=== PATIENT | female | born 1985 | race Caucasian/White ===

== ENCOUNTER 2019-05-12 11:29 | Inpatient (IN) | payer MEDICAID, OTHER ==
--- NOTE | 2019-05-12 12:34 | ED ---
General Adult HPI - General Source: patient, family, RN notes reviewed Mode of arrival: ambulatory Limitations: no limitations <Jerald Rivas - Last Filed: 05/12/19 14:29> <Norah Coy - Last Filed: 05/17/19 12:16> - General Chief complaint: Psychiatric Symptoms Stated complaint: EPS eval Time Seen by Provider: 05/12/19 11:42 - History of Present Illness Initial comments: 34-year-old female with a past medical history of depression, anxiety, schizophrenia, bipolar disorder on several different medications outpatient for these conditions presents to the emergency department for "not feeling myself here at" this has been ongoing for about 2 weeks. Patient states she feels like something is "off." That she has been more anxious. States that she is feeling more depressed as well. She has had suicidal thoughts for 2 weeks. States she does not feel safe anywhere and she feels she is going to hurt herself. Apparently in front of her and son a few nights ago patient put a cord around her neck and "yanked it." She has a small abrasion and pressed her right side of her neck from this. She did not hang herself. Patient is denying a plan of suicide at this time but is currently feeling suicidal. is at bedside.Patient has no other complaints at this time including shortness of breath, chest pain, abdominal pain, nausea or vomiting, headache, or visual changes. (Jerald Rivas) - Related Data Home Medications Medication Instructions Recorded Confirmed Benztropine Mesylate [Cogentin] 1 mg PO BID 05/12/19 05/12/19 Prolixin 25mg/1ml Oil 25 mg IM Q14D 05/12/19 05/12/19 Propranolol LA [Inderal LA] 80 mg PO DAILY 05/12/19 05/12/19 hydrOXYzine PAMOATE [Vistaril] 50 mg PO BID 05/12/19 05/12/19 lamoTRIgine [LaMICtal] 50 mg PO DAILY 05/12/19 05/12/19 Allergies Allergy/AdvReac Type Severity Reaction Status Date / Time Iodine and Iodide Containing Allergy Unknown Verified 05/12/19 13:51 Produc Review of Systems ROS Other: All systems not noted in ROS Statement are negative. <Rob,Jerald P - Last Filed: 05/12/19 14:29> ROS Other: All systems not noted in ROS Statement are negative. <Norah Coy A - Last Filed: 05/17/19 12:16> ROS Statement: Those systems with pertinent positive or pertinent negative responses have been documented in the HPI. Past Medical History Additional Past Medical History / Comment(s): depression, anxiety History of Any Multi-Drug Resistant Organisms: None Reported Past Surgical History: Bladder Surgery, Hysterectomy, Tubal Ligation Past Psychological History: Anxiety, Depression, Schizophrenia Smoking Status: Current every day smoker Past Alcohol Use History: Occasional Past Drug Use History: Marijuana <Jerald Rivas P - Last Filed: 05/12/19 14:29> General Exam Limitations: no limitations General appearance: alert, in no apparent distress Head exam: Present: atraumatic Eye exam: Present: normal appearance, PERRL, EOMI. Absent: scleral icterus, conjunctival injection, periorbital swelling ENT exam: Present: normal exam, mucous membranes moist Neck exam: Present: full ROM, other (Patient has a superficial abrasion noted to the right side of the neck. There is no bruising or ecchymosis. No carotid bruit.). Absent: tenderness, meningismus, lymphadenopathy Respiratory exam: Present: normal lung sounds bilaterally. Absent: respiratory distress, wheezes, rales, rhonchi, stridor Cardiovascular Exam: Present: regular rate, normal rhythm, normal heart sounds. Absent: systolic murmur, diastolic murmur, rubs, gallop, clicks GI/Abdominal exam: Present: soft, normal bowel sounds. Absent: distended, tenderness, guarding, rebound, rigid Neurological exam: Present: alert <Jerald Rivas P - Last Filed: 05/12/19 14:29> Course Vital Signs 05/12/19 05/12/19 11:32 14:31 Temperature 98.6 F 98.6 F Pulse Rate 75 51 L Respiratory 18 16 Rate Blood Pressure 130/82 116/74 O2 Sat by Pulse 97 97 Oximetry Medical Decision Making <Jerald Rivas P - Last Filed: 05/12/19 14:29> - Lab Data Result diagrams: 05/13/19 07:56 <Norah Coy A - Last Filed: 05/17/19 12:16> - Medical Decision Making Patient was evaluated by EPS, recommending inpatient management. Patient is signing herself in. (Jerald Rivas) I was available for consultation in the emergency department. The history and physical exam were done by the midlevel provider. I was consulted for this patients care. I reviewed the case with the midlevel provider and based on their presentation of the patient, I agree with the assessment, medical decision making and plan of care as documented. Chart was dictated using [employer] dictation software. Attempts were made to correct any dictation errors however some typographical errors may persist. (Norah Coy) - Lab Data Lab Results 05/12/19 Range/Units 12:20 Urine Opiates Screen Not Detected (NotDetected) Ur Oxycodone Screen Not Detected (NotDetected) Urine Methadone Screen Not Detected (NotDetected) Ur Propoxyphene Screen Not Detected (NotDetected) Ur Barbiturates Screen Not Detected (NotDetected) U Tricyclic Antidepress Not Detected (NotDetected) Ur Phencyclidine Scrn Detected H (NotDetected) Ur Amphetamines Screen Not Detected (NotDetected) U Methamphetamines Scrn Not Detected (NotDetected) U Benzodiazepines Scrn Not Detected (NotDetected) Urine Cocaine Screen Not Detected (NotDetected) U Marijuana (THC) Screen Detected H (NotDetected) Disposition Time of Disposition: 14:30 <Jerald Rivas - Last Filed: 05/12/19 14:29> <Norah Coy - Last Filed: 05/17/19 12:16> Clinical Impression: Suicidal thoughts Disposition: TRANSFER TO PSYCH HOSP/UNIT Condition: Fair
[2019-05-12 12:48] LABS: Amphetamine Screen,Urine Not Detected (NotDetected); Barbiturate Screen,Urine Not Detected (NotDetected); Benzodiazepines Screen,Urine Not Detected (NotDetected); Cocaine Screen,Urine Not Detected (NotDetected); Methadone Screen, Urine Not Detected (NotDetected); Opiate Screen,Urine Not Detected (NotDetected); Oxycodone Screen, Urine Not Detected (NotDetected); Phencyclidine Screen,Urine Detected (NotDetected); Tricyclic Antidepressant,Urine Not Detected (NotDetected); Urn Cannabinoid Scrn Detected (NotDetected)
[2019-05-12] MEDS ORDERED: LORazepam 1 MG TAB PO STA (13:16)
[2019-05-12] MEDS ORDERED: MAGNESIUM HYDROXIDE 2,400 MG/10 ML CUP PO PRN (14:20)
[2019-05-12] MEDS ORDERED: ZIPRASIDONE 20 MG VIAL IM PRN (14:20)
[2019-05-12] MEDS ORDERED: ACETAMINOPHEN TAB 325 MG TAB PO PRN (14:20)
[2019-05-12] MEDS ORDERED: MAG HYDROX/AL HYDROX/SIMETH 30 ML CUP PO PRN (14:20)
[2019-05-12] MEDS ORDERED: QUEtiapine 50 MG TAB PO STA (16:40)
[2019-05-12] MEDS: hydrOXYzine PAMOATE 25 MG CAP PO SCH (20:09)
[2019-05-12] MEDS: MELATONIN 3 MG TABLET PO SCH (20:10)
--- NOTE | 2019-05-13 02:29 | P.CONS ---
History of Present Illness - Reason for Consult Consult date: 05/13/19 - History of Present Illness Patient is a 34-year-old female with a PMH of bipolar disorder and anxiety disorder who presented to the ED after a suicidal attempt and suicidal ideation. The patient had reportedly attempted to hurt herself or tying a noose around her neck whilst in the presence of her family. She presented to the emergency room with worsening depressive thoughts and suicidal ideation. She also reported urinary frequency and urgency and suprapubic mild pain. She reported some pain at the site of the noose though denied difficulty swallowing, changes in voice, or difficulty breathing. She denied any additional complaints. She denied fever, chills, chest pain, shortness of breath, nausea, vomiting, or diarrhea. Urine toxicology emergency room was positive for PCP and marijuana. She denied use of PCP and reported that she might of had laced marijuana which she uses on a regular basis. Review of Systems Pertinent positives and negatives as discussed in HPI, a complete review of systems was performed and all other systems are negative. Past Medical History Additional Past Medical History / Comment(s): depression, anxiety History of Any Multi-Drug Resistant Organisms: None Reported Past Surgical History: Bladder Surgery, Hysterectomy, Tubal Ligation Smoking Status: Former smoker Medications and Allergies Home Medications Medication Instructions Recorded Confirmed Type Benztropine Mesylate [Cogentin] 1 mg PO BID 05/12/19 05/12/19 History Prolixin 25mg/1ml Oil 25 mg IM Q14D 05/12/19 05/12/19 History Propranolol LA [Inderal LA] 80 mg PO DAILY 05/12/19 05/12/19 History hydrOXYzine PAMOATE [Vistaril] 50 mg PO BID 05/12/19 05/12/19 History lamoTRIgine [LaMICtal] 50 mg PO DAILY 05/12/19 05/12/19 History Allergies Allergy/AdvReac Type Severity Reaction Status Date / Time Iodine and Iodide Containing Allergy Unknown Verified 05/12/19 13:51 Produc Physical Exam Vitals: Vital Signs Temp Pulse Pulse Resp BP BP Pulse Ox 05/12/19 17:30 97.9 F 05/12/19 15:31 97.2 F L 63 16 110/67 96 05/12/19 14:31 98.6 F 51 L 16 116/74 97 05/12/19 11:32 98.6 F 75 18 130/82 97 Intake and Output 05/12/19 05/12/19 05/13/19 14:59 22:59 06:59 Other: Weight 81.647 kg 76.975 kg General: non toxic, no distress, appears at stated age, normal weight Derm: Circumferential abrasion around neck, no unusual ecchymoses, warm, dry Head: atraumatic, normocephalic, symmetric Eyes: EOMI, no lid lag, anicteric sclera, pupils equal round reactive to light ENT: Nose and ears atraumatic, no thrush, no pharyngeal erythema Neck: No thyromegaly, no cervical lymphadenopathy, trachea midline, supple Mouth: no lip lesion, mucus membranes moist Cardiovascular: S1S2 reg, no murmur, positive posterior tibial pulse bilateral, no edema, capillary refill less than 2 seconds Lungs: CTA bilateral, no rhonchi, no rales , no accessory muscle use Abdominal: soft, nontender to palpation, no guarding, no appreciable organomegaly, normal bowel sounds Ext: no gross muscle atrophy, muscle strength 5 out of 5 in all 4 extremities grossly, no contractures, Neuro: CN II-XI grossly intact, light touch intact all 4 extremities, finger to nose within normal limits, Psych: Alert, oriented, sad affect Results Labs: Abnormal Lab Results - Last 24 Hours (Table) 05/12/19 Range/Units 12:20 Ur Phencyclidine Scrn Detected H (NotDetected) U Marijuana (THC) Screen Detected H (NotDetected) Assessment and Plan Plan: Urinary complaints -Obtain UA PCP and Marijuana abuse -Advised on the importance of cessation Depression with suicidal ideation -As per psychiatry Thank you for allowing us to participate in the care of this patient. We will follow peripherally. Do not hesitate to contact us with questions. Someone can be reached from the [facility] hospitalist group at all hours of the day at [phone].
[2019-05-13] MEDS: hydrOXYzine PAMOATE 25 MG CAP PO SCH ×2 (08:33→20:26)
[2019-05-13 08:34] LABS: ALT 15 U/L (4-34); AST 23 U/L (14-36); African American GFR (CKD) >90 (>60 ml/min/1.73 sqM); Albumin 4.9 g/dL (3.5-5.0); Alkaline Phosphatase 54 U/L (38-126); Anion Gap 12 mmol/L; Blood Urea Nitrogen 17 mg/dL (7-17); Calcium 10.5 mg/dL (8.4-10.2); Carbon Dioxide 25 mmol/L (22-30); Chloride 102 mmol/L (98-107); Cholesterol 259 mg/dL (<200); Glucose 102 mg/dL (74-99); HDL Cholesterol 46 mg/dL (40-60); LDL Cholesterol,Calculated 186 mg/dL (0-99); Non-African American GFR(CKD) 84 (>60 ml/min/1.73 sqM); Sodium 139 mmol/L (137-145); Total Bilirubin 0.6 mg/dL (0.2-1.3); Total Protein 8.3 g/dL (6.3-8.2); Triglycerides 133 mg/dL (<150)
[2019-05-13] MEDS: PROPRANOLOL LA 80 MG CAP.SA.24H PO SCH (08:35)
[2019-05-13] MEDS ORDERED: NICOTINE 14MG/24HR PATCH TRANSDERM SCH (09:00)
[2019-05-13] MEDS ORDERED: lamoTRIgine 25 MG TAB PO SCH (09:00)
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
[2019-05-13] MEDS: LORazepam 1 MG TAB PO PRN (11:53)
[2019-05-13 20:11] LABS: Hemoglobin A1C 5.1 % (4.0-6.0)
[2019-05-13] MEDS: DIVALPROEX ER 500 MG TAB.ER.24H PO SCH (20:26)
[2019-05-13] MEDS: MELATONIN 3 MG TABLET PO SCH (20:26)
[2019-05-14] MEDS: hydrOXYzine PAMOATE 25 MG CAP PO SCH ×2 (07:49→20:16)
[2019-05-14] MEDS: PROPRANOLOL LA 80 MG CAP.SA.24H PO SCH (07:49)
[2019-05-14] MEDS ORDERED: fluPHENAZine DECANOATE 25 MG/ML 5ML MDV IM SCH (09:00)
[2019-05-14] MEDS: LORazepam 1 MG TAB PO PRN (10:11)
--- NOTE | 2019-05-14 11:04 | P.PN ---
Progress Note - Text Interval history: The patient is found in group she follows me to an interview room. She indicates that her mood is a little better today. She states that she slept well last night staff recorded she slept 7 hours. She indicates she had a pleasant dream last evening and is been a long time since she remembered a dream. She did have a phone conversation with her which seemed to go fairly well. We reviewed her psychotropic medications. Continues to emphasize anxiety symptoms but we discussed the importance of treating her mood instability first. She has been attending groups. Staff report no agitated behavior. Mental status exam: The patient is alert she is dressed in her own clothing just the same as yesterday. Hygiene grooming fair. Eye contact is appropriate. She is pleasant she is directable. She endorses a continued sad and anxious mood. When asked about suicidal thoughts she becomes tearful and states that they persist but she feels safe in the hospital. She states that she still has the thought that nothing will get better but is trying to foster some hope that the medication changes will be helpful. She does continue to endorse some feelings of restlessness physically. She reports no homicidal ideation intent or plan. She demonstrates no tangential thinking loose associations or flight of ideas. She does not appear hypomanic or manic. She is endorsing no auditory or visual hallucinations or any specific delusions. There is no overt evidence of psychosis. Insight and judgment limited. She demonstrates no verbal or physical aggressiveness she demonstrates no involuntary repetitive movements. She does still frequently changed positions while seated in the chair. Plan: The patient will continue on her current psychotropic medications we discussed some options in terms of addressing her anxiety. She is encouraged to minimize use of Ativan. She is encouraged to continue participating in groups fully we will monitor her for safety. Vital signs reviewed.
[2019-05-14] MEDS: DIVALPROEX ER 500 MG TAB.ER.24H PO SCH (20:17)
[2019-05-14] MEDS: MELATONIN 3 MG TABLET PO SCH (20:17)
[2019-05-15] MEDS: hydrOXYzine PAMOATE 25 MG CAP PO SCH ×3 (07:49→20:01)
[2019-05-15] MEDS: PROPRANOLOL LA 80 MG CAP.SA.24H PO SCH ×2 (07:49→10:30)
[2019-05-15] MEDS: LORazepam 1 MG TAB PO PRN ×2 (08:04→21:09)
--- NOTE | 2019-05-15 09:29 | P.PN ---
Progress Note - Text Interval history: The patient is found in the hallway she follows me to an interview room. She indicates that her mood is slowly improving. She did sleep well last night staff reported she slept 6 hours she indicates she slept 8-10 hours. Appetite is stable. She has been compliant with her medications. She did have a conversation with her . automotive worker did contact her those notes were reviewed. We spent some time discussing the use of CBT and how to cognitively reframe situations. We reviewed his simple example and how it may apply to her every day thinking. She indicates that she is working with a new therapist and has seen her 3 times she states they have been starting to engage in some CBT work. Mental status exam: The patient is alert she is dressed in her own clothing which is the same as yesterday. Hygiene and grooming good. Eye contact is appropriate speech is fluent and spontaneous nonpressured. She maintains a constricted affect throughout the session she does become tearful when asked about suicidal thoughts. She states that she feels safe in the hospital she feels of suicidal thoughts or slowly reducing. She states that it's almost uncomfortable to be hopeful again. She reports no thoughts of harming others. She is reporting no auditory or visual hallucinations or any specific delusions. Insight and judgment limited but slowly improving. She is oriented to person place and date. She demonstrates no verbal or physical aggressiveness she demonstrates less movement as she seated in the chair but endorses continued restlessness. Plan: The patient will continue on her current psychotropic medications. We will allow the Depakote time to demonstrate efficacy and we will need to draw a level once it has reach steady state. If she demonstrates sufficient improvement I expect she will be appropriate for discharge early next week. We will continue to monitor her for safety. She requires continued psychiatric hospitalization for acute safety reasons including suicidal ideation.
[2019-05-15] MEDS: ONDANSETRON 4 MG TAB PO PRN (09:59)
[2019-05-15] MEDS: MELATONIN 3 MG TABLET PO SCH (20:01)
[2019-05-15] MEDS: DIVALPROEX ER 500 MG TAB.ER.24H PO SCH (20:01)
[2019-05-16] MEDS: ONDANSETRON 4 MG TAB PO PRN (08:14)
[2019-05-16] MEDS: hydrOXYzine PAMOATE 25 MG CAP PO SCH (08:57)
[2019-05-16] MEDS: PROPRANOLOL LA 80 MG CAP.SA.24H PO SCH (08:57)
[2019-05-16] MEDS: LORazepam 1 MG TAB PO PRN (10:12)
--- NOTE | 2019-05-16 10:50 | P.PN ---
Progress Note - Text Interval history: The patient is found in the hallway she follows me to an interview room. She indicates that her mood is more down and anxious today. She reports continued feelings of restlessness that she attributes to the previous use of Prolixin. She wonders if she could start Seroquel which has had a call main influence on her in the past. We did discuss this as an option upon admission. We were previously concerned about the appetite stimulation but she feels right now it'll provide more benefit than side effect. She has been sleeping at night she continues to speak with her via phone she states those conversations have been going well. She has been compliant with her medication she has been attending group. Mental status exam: The patient is alert she is dressed in her own clothing hygiene grooming adequate. Eye contact is appropriate. She reports feeling very distressed due to ongoing restless feelings. Affect is dysphoric today. She reports some hopelessness thinking and some brief suicidal thoughts because of the restless feelings. She reports no thoughts of harming others. She describes no auditory or visual hallucinations or any specific delusions. There is no observed evidence of psychosis. Insight and judgment limited. Cognitively she is grossly intact. She demonstrates no verbal or physical aggressiveness. She does change position while seated in the chair often during the session. Thought process demonstrates no tangential thinking loose associations or flight of ideas. Plan: The patient will continue on her current psychotropic meds however we will discontinue the hydroxyzine and initiate Seroquel 50 mg twice daily. We will monitor for appetite stimulation we will monitor for sedation. We will draw a Depakote level Sunday morning. We will monitor her for safety. She is encouraged to continue participating fully in the milieu. Vital signs reviewed. She requires continued psychiatric hospitalization for acute safety reasons.
[2019-05-16] MEDS: QUEtiapine 50 MG TAB PO SCH ×2 (11:10→20:17)
[2019-05-16] MEDS: MELATONIN 3 MG TABLET PO SCH (20:17)
[2019-05-16] MEDS: DIVALPROEX ER 500 MG TAB.ER.24H PO SCH (20:17)
[2019-05-17] MEDS: QUEtiapine 50 MG TAB PO SCH ×2 (08:37→20:06)
[2019-05-17] MEDS: PROPRANOLOL LA 80 MG CAP.SA.24H PO SCH (08:37)
--- NOTE | 2019-05-17 09:30 | P.PN ---
Progress Note - Text Progress Note Date: 05/17/19 Interval history: Patient was seen laying down in her bed and was directable and agreeable to s peak with proposal manager writer. And appeared to have a constricted affect and had poverty of content during her speech. She did not endorse any complaints overnight and states that she is doing "fine" when asked about her mood. She denied any anxiety at this time. She states that her energy level is fair however when to take nap after breakfast. She states that she is going to some groups however did not elaborate much on them. At this time patient denies any suicidal or homicidal ideations intent or plan. Denies any Auditory or visual hallucinations. Patient denies any side effects from the medications and has been compliant with meds. Mental status exam: General Appearance: Patient appears to be stated age is alert, directable, however somewhat guarded . Fair hygiene. Behavior: No agitated behavior. Patient is calm and directable somewhat guarded. Speech: Patient's speech is fluent and nonpressured. Mood/Affect: Mood is improving mildly, affect is congruent and constricted. Suicidality/Homicidality: Patient denies having any suicidal or homicidal ideation intent or plan. Perceptions: Patient denies any auditory or visual hallucinations. Though content/process: There is no evidence of any delusional thought content and thought process is linear and goal-directed. Operative content. Memory and concentration: AOX3, grossly intact for the purposes of this session Judgment and insight: improving mildly Assessment/Plan: Continue with current diagnosis. Patient continues to meet criteria for inpatient psychiatric admission for symptom stabilization and safety.Patient will be maintained on current psychotropic medication regimen. Patient will get a Depakote level drawn on Sunday morning. Monitor for medication compliance and for any psychotropic medication side effects. Will continue to monitor ongoing response to treatment. Encouraged participation in milieu.
[2019-05-17] MEDS: LORazepam 1 MG TAB PO PRN (13:02)
[2019-05-17] MEDS: MELATONIN 3 MG TABLET PO SCH (20:06)
[2019-05-17] MEDS: DIVALPROEX ER 500 MG TAB.ER.24H PO SCH (20:06)
[2019-05-18 07:18] VITALS: RESP 16
[2019-05-18] MEDS: PROPRANOLOL LA 80 MG CAP.SA.24H PO SCH (08:19)
[2019-05-18] MEDS: QUEtiapine 50 MG TAB PO SCH ×2 (08:19→20:01)
--- NOTE | 2019-05-18 09:32 | P.PN ---
Progress Note - Text Progress Note Date: 05/18/19 Interval history: Patient was seen laying down in her bed and was directable and agreeable to s peak with machine sign writer. She did not endorse any complaints overnight and states that she slept well last night. She continues to claim that she is doing "fine" when asked about her mood and denied in depression or any anxiety. She states that her energy level is good. She states that she is continuing to feel tired after breakfast and was laying down for now. She states that she is going to some elder ups. Patient was focused on discharge possibly tomorrow. At this time patient denies any suicidal or homicidal ideations intent or plan. Denies any Auditory or visual hallucinations. Patient denies any side effects from the medications and has been compliant with meds. Mental status exam: General Appearance: Patient appears to be stated age is alert, directable, however somewhat guarded . Fair hygiene. Behavior: No agitated behavior. Patient is calm and directable somewhat guarded. Speech: Patient's speech is fluent and nonpressured. Mood/Affect: Mood is improving mildly, affect is congruent and constricted. Suicidality/Homicidality: Patient denies having any suicidal or homicidal ideation intent or plan. Perceptions: Patient denies any auditory or visual hallucinations. Though content/process: There is no evidence of any delusional thought content and thought process is linear and goal-directed. Memory and concentration: AOX3, grossly intact for the purposes of this session Judgment and insight: improving mildly Assessment/Plan: Continue with current diagnosis. Patient continues to meet criteria for inpatient psychiatric admission for symptom stabilization and safety.Patient will be maintained on current psychotropic medication regimen. Patient will get a Depakote level drawn on Sunday morning. Monitor for medication compliance and for any psychotropic medication side effects. Will continue to monitor ongoing response to treatment. Encouraged participation in milieu.
[2019-05-18] MEDS: LORazepam 1 MG TAB PO PRN (12:18)
[2019-05-18] MEDS: MELATONIN 3 MG TABLET PO SCH (20:01)
[2019-05-18] MEDS: DIVALPROEX ER 500 MG TAB.ER.24H PO SCH (20:02)
[2019-05-19 07:20] VITALS: TEMP 98.2
[2019-05-19] MEDS: QUEtiapine 50 MG TAB PO SCH (08:40)
[2019-05-19] MEDS: PROPRANOLOL LA 80 MG CAP.SA.24H PO SCH (08:40)
[2019-05-19 08:41] VITALS: BP 98/64; PULSE 77
[2019-05-19 09:56] LABS: Valproic Acid (Depakene) 123.2 ug/mL
--- NOTE | 2019-05-19 11:06 | P.DS ---
Providers Date of admission: 05/12/19 14:16 Expected date of discharge: 05/19/19 Attending physician: Garcia Wilkes Consults: 05/12/19 14:20 Consult Physician Routine Consulting Provider: Rita Carpenter Consult Reason/Comments: medical management Do you want consulting provider notified?: Yes Primary care physician: Og Ripley - Discharge Diagnosis(es) (1) Bipolar 1 disorder, depressed, severe Current Visit: Yes Status: Acute Priority: High (2) Cannabis use disorder, moderate, dependence Current Visit: Yes Status: Acute Priority: Medium Hospital Course: Brief summary of admission note: This patient is a 34-year-old female who was admitted to the mental health through the emergency room for acute suicidal ideation. She reports that 4 days prior she had taken an extension cord and wrapped it around her neck and was pulling on it. This did cause some bruising on her neck. She reports that she been feeling depressed and suicidal. She was recently hospitalized at another psychiatric facility was placed on Prolixin decanoate. She indicated since then she was having extreme feelings of restlessness and felt it was overwhelming. She states that she had a feeling of always wanting to move or run. She was given Vistaril and propranolol which reportedly did not reduce the symptoms effectively. She endorsed a history of bipolar 1 disorder with history of psychosis. For full detail please refer to my psychiatric evaluation dated 05/13/2019. Summary of hospital course: The patient was admitted to the mental health unit voluntarily. We reviewed her presenting symptoms and treatment options. We decided to initiate Depakote ER as a mood stabilizer. The Prolixin Decanoate was not continued. During the hospitalization we also discontinued the Vistaril and initiated Seroquel 50 mg twice daily. The patient reported a progressive improvement of symptoms while here. She reports that the feelings of restlessness or slowly reducing. She was seen by internal medicine for routine history and physical exam. Social work met with the patient to complete a psychosocial assessment and for discharge planning purposes. We did obtain a Depakote level this morning the level was elevated at 123. We will reduce the Depakote dose. She indicates that she is having no hopelessness feelings. She is reporting no side effects from medication. Social work has been able to contact her via phone. Mental status exam: The patient is alert she is pleasant and cooperative she presents with adequate hygiene grooming eye contact is appropriate. Speech is fluent spontaneous nonpressured. She indicates her mood is good she demonstrates inappropriate smiling affect. She is reporting no hopelessness thinking she is reporting no suicidal ideation intent or plan. She is reporting no homicidal ideation intent or plan. She endorses no auditory or visual hallucinations or any specific delusions. She demonstrates no tangential thinking loose associations or flight of ideas she does not appear currently hypomanic or manic. Insight and judgment are grossly intact. She is oriented to person place and date. She is demonstrating no verbal or physical aggressiveness she is demonstrating no involuntary repetitive movements. She was able to sit in her chair more calmly today. Impressions 1. Bipolar 1 disorder most recent depressed severe without psychosis, cannabis use disorder moderate Plan: The patient will continue on the Seroquel 50 mg twice daily we will reduce the Depakote ER to 750 mg at bedtime. The patient will be discharged home today to return residing with her family. She will continue following up with [facility]. At this time there is no imminent safety risk she is appropriate transition back to outpatient care. She is instructed to discontinue all use of marijuana she is advised to use no alcohol. She feels that she is able to discontinue the marijuana without any other intervention such as inpatient chemical dependency treatment. She requires no medication specifically for substance use treatment. She is instructed to return to hospital if any acute safety concerns. Patient Condition at Discharge: Stable Plan - Discharge Summary Discharge Rx Participant: No New Discharge Prescriptions: New Divalproex ER [Depakote ER] 750 mg PO HS #45 tab.er.24h Melatonin 3 mg PO HS tablet QUEtiapine [SEROquel] 50 mg PO BID #60 tab Continue Propranolol LA [Inderal LA] 80 mg PO DAILY Discontinued lamoTRIgine [LaMICtal] 50 mg PO DAILY hydrOXYzine PAMOATE [Vistaril] 50 mg PO BID Prolixin 25mg/1ml Oil 25 mg IM Q14D Benztropine Mesylate [Cogentin] 1 mg PO BID Discharge Medication List Propranolol LA [Inderal LA] 80 mg PO DAILY 05/12/19 [History] Divalproex ER [Depakote ER] 750 mg PO HS #45 tab.er.24h 05/19/19 [Rx] Melatonin 3 mg PO HS tablet 05/19/19 [Rx] QUEtiapine [SEROquel] 50 mg PO BID #60 tab 05/19/19 [Rx] Follow up Appointment(s)/Referral(s): [facility] [Outside] - 05/26/19 2:00 pm (May 25 at @:00 with case linares Adelso Piter June 03 at 12:00 with prescriber Zoe García) Og Fermin, [Primary Care Provider] - 1-2 days Activity/Diet/Wound Care/Special Instructions: Activity and diet as tolerated. Avoid the use of street drugs and alcohol. Take all medications as prescribed. When you are in need of refills on your medications please contact your medical provider and/or outpatient psychiatrist to have this done. Please go to scheduled outpatient appointment for aftercare treatment. If symptoms return or become worse, call the crisis line at and/or go to the nearest emergency room for evaluation.
[2019-05-19] MEDS ORDERED: DIVALPROEX ER 250 MG TAB.ER.24H PO SCH (21:00)
== END 2019-05-19 12:00 | disposition home or self-care (01) | DRG 885 ==
LOC: EC 11:29 → 3MHU 14:16
PROVIDERS: ADMIT Psychiatry & Neurology Psychiatry; ATTEND Psychiatry & Neurology Psychiatry
DX: F31.4 Bipolar disorder, current episode depressed, severe, without psychotic features (principal); R45.851 Suicidal ideations; F12.20 Cannabis dependence, uncomplicated; F41.9 Anxiety disorder, unspecified; R39.15 Urgency of urination; R35.0 Frequency of micturition; F17.210 Nicotine dependence, cigarettes, uncomplicated; S10.91XA Abrasion of unspecified part of neck, initial encounter; Z79.899 Other long term (current) drug therapy; Z71.51 Drug abuse counseling and surveillance of drug abuser; Z90.710 Acquired absence of both cervix and uterus; Z98.51 Tubal ligation status; Z98.890 Other specified postprocedural states; Z88.8 Allergy status to other drugs, medicaments and biological substances; Z91.041 Radiographic dye allergy status; Z81.8 Family history of other mental and behavioral disorders; X83.8XXA Intentional self-harm by other specified means, initial encounter; Y92.009 Unspecified place in unspecified non-institutional (private) residence as the place of occurrence of the external cause
CPT/HCPCS: 80053; 80061; 80164; 80306; 82075; 83036; 84443; 84450; 84460; 99284

== ENCOUNTER 2020-02-14 14:35 | Emergency (ER) | payer OTHER ==
--- NOTE | 2020-02-14 14:46 | ED ---
Female Urogenital HPI - General Chief complaint: Urogenital Stated complaint: kidney pain Time Seen by Provider: 02/14/20 14:45 Source: patient Mode of arrival: ambulatory Limitations: no limitations - History of Present Illness Initial comments: 34-year-old female with history of recurrent UTI presenting to the emergency department with a chief complaint of kidney infection. Patient reports she has a burning sensation in the "left kidney region" for the past several months. Patient reports she does have mild increased urinary frequency over the last few days but no increased urgency or dysuria. Denies any vaginal bleeding, discharge, itching or foul smell. Does have history of hysterectomy 13 years ago. Denies any nausea vomiting diarrhea. Does report mild abdominal bloating. Patient states she does have history of anxiety and has had some mild palpitations earlier today but not at the moment. Denies any shortness of breath. States this is likely secondary to her anxiety. Denies any headaches, visual changes, one-sided weakness or paresthesias. Denies any lightheadedness, dizziness. - Related Data Home Medications Medication Instructions Recorded Confirmed Propranolol LA [Inderal LA] 80 mg PO DAILY 05/12/19 05/12/19 Previous Rx's Medication Instructions Recorded Divalproex ER [Depakote ER] 750 mg PO HS #45 tab.er.24h 05/19/19 Melatonin 3 mg PO HS tablet 05/19/19 QUEtiapine [SEROquel] 50 mg PO BID #60 tab 05/19/19 Allergies Allergy/AdvReac Type Severity Reaction Status Date / Time Iodine and Iodide Containing Allergy Unknown Verified 02/14/20 14:44 Produc Review of Systems ROS Statement: Those systems with pertinent positive or pertinent negative responses have been documented in the HPI. ROS Other: All systems not noted in ROS Statement are negative. Past Medical History Additional Past Medical History / Comment(s): depression, anxiety History of Any Multi-Drug Resistant Organisms: None Reported Past Surgical History: Bladder Surgery, Hysterectomy, Tubal Ligation Past Psychological History: Anxiety, Depression, Schizophrenia Smoking Status: Former smoker Past Alcohol Use History: Occasional Past Drug Use History: Marijuana General Exam Limitations: no limitations General appearance: alert, in no apparent distress Head exam: Present: atraumatic, normocephalic, normal inspection Eye exam: Present: normal appearance, PERRL, EOMI Pupils: Present: normal accommodation ENT exam: Present: normal exam, normal oropharynx, mucous membranes moist, TM's normal bilaterally, normal external ear exam Neck exam: Present: normal inspection, full ROM. Absent: tenderness Respiratory exam: Present: normal lung sounds bilaterally. Absent: respiratory distress, wheezes, rales, rhonchi, stridor Cardiovascular Exam: Present: regular rate, normal rhythm, normal heart sounds. Absent: diastolic murmur GI/Abdominal exam: Present: soft. Absent: distended, tenderness, guarding Extremities exam: Present: normal inspection, full ROM, normal capillary refill. Absent: tenderness Back exam: Present: normal inspection, full ROM, CVA tenderness (L). Absent: tenderness, CVA tenderness (R) Neurological exam: Present: alert, oriented X3 Psychiatric exam: Present: normal mood, flat affect Skin exam: Present: warm, dry, intact, normal color Course Vital Signs 02/14/20 02/14/20 14:41 16:24 Temperature 98.5 F 98.0 F Pulse Rate 72 86 Respiratory 16 18 Rate Blood Pressure 109/79 98/66 O2 Sat by Pulse 98 97 Oximetry Medical Decision Making - Medical Decision Making 34-year-old female with history of recurrent UTI presenting to emergency departments chief complaint of kidney infection. On physical examination, patient has no abdominal tenderness. Very mild left CVA tenderness. Patient has a very flat affect. CBC CMP and UA are unremarkable. Patient was notified of the results. Patient was given IV fluids, Zofran and Toradol. On reevaluation patient reports some improvement in symptoms. Patient does not appear to be any significant discomfort. Vitals are stable. Patient advised to follow-up with her primary care physician. Patient eloped. - Lab Data Result diagrams: 02/14/20 15:26 02/14/20 15:26 Lab Results 02/14/20 02/14/20 02/14/20 Range/Units 15:05 15:26 15:26 WBC 7.0 (3.8-10.6) k/uL RBC 4.86 (3.80-5.40) m/uL Hgb 14.4 (11.4-16.0) gm/dL Hct 42.1 (34.0-46.0) % MCV 86.6 (80.0-100.0) fL MCH 29.5 (25.0-35.0) pg MCHC 34.1 (31.0-37.0) g/dL RDW 11.7 (11.5-15.5) % Plt Count 336 (150-450) k/uL MPV 6.9 Neutrophils % 41 % Lymphocytes % 45 % Monocytes % 7 % Eosinophils % 5 % Basophils % 2 % Neutrophils # 2.9 (1.3-7.7) k/uL Lymphocytes # 3.1 (1.0-4.8) k/uL Monocytes # 0.5 (0-1.0) k/uL Eosinophils # 0.3 (0-0.7) k/uL Basophils # 0.1 (0-0.2) k/uL Sodium 140 (137-145) mmol/L Potassium 4.3 (3.5-5.1) mmol/L Chloride 104 (98-107) mmol/L Carbon Dioxide 28 (22-30) mmol/L Anion Gap 8 mmol/L BUN 11 (7-17) mg/dL Creatinine 0.87 (0.52-1.04) mg/dL Est GFR (CKD-EPI)AfAm >90 (>60 ml/min/1.73 sqM) Est GFR (CKD-EPI)NonAf 86 (>60 ml/min/1.73 sqM) Glucose 104 H (74-99) mg/dL Calcium 10.1 (8.4-10.2) mg/dL Total Bilirubin 0.4 (0.2-1.3) mg/dL AST 27 (14-36) U/L ALT 26 (4-34) U/L Alkaline Phosphatase 41 (38-126) U/L Total Protein 7.7 (6.3-8.2) g/dL Albumin 4.4 (3.5-5.0) g/dL Lipase 81 (23-300) U/L Urine Color Yellow Urine Appearance Cloudy H (Clear) Urine pH 6.0 (5.0-8.0) Ur Specific [place] 1.024 (1.001-1.035) Urine Protein Trace H (Negative) Urine Glucose (UA) Negative (Negative) Urine Ketones Negative (Negative) Urine Blood Negative (Negative) Urine Nitrite Negative (Negative) Urine Bilirubin Negative (Negative) Urine Urobilinogen <2.0 (<2.0) mg/dL Ur Leukocyte Esterase Trace H (Negative) Urine RBC 1 (0-5) /hpf Urine WBC 4 (0-5) /hpf Ur Squamous Epith Cells 9 H (0-4) /hpf Hyaline Casts 1 (0-2) /lpf Urine Mucus Occasional H (None) /hpf - EKG Data EKG Comments: Sinus rhythm, no ST or T-wave changes Ventricular rate 70, MA 156, QRS 84, QTC 432. Disposition Clinical Impression: Abdominal pain Disposition: HOME SELF-CARE Condition: Stable Instructions (If sedation given, give patient instructions): Abdominal Pain (ED) Additional Instructions: Follow-up with the primary care physician. Return to emergency department if symptoms worsen. Is patient prescribed a controlled substance at d/c from ED?: No Referrals: None,Stated [Primary Care Provider] - 1-2 days Time of Disposition: 16:10
[2020-02-14] MEDS ORDERED: KETOROLAC 15 MG/ML 1 ML VIAL IVP STA (14:54)
[2020-02-14] MEDS ORDERED: ONDANSETRON 4 MG/2 ML VIAL IVP STA (14:54)
[2020-02-14] MEDS ORDERED: SODIUM CHLORIDE 0.9% 1,000 ML IV STA (14:54)
[2020-02-14 15:16] LABS: Appearance,Urine Cloudy (Clear); Bilirubin,Urine Negative (Negative); Blood,Urine Negative (Negative); Color,Urine Yellow; Glucose,Urine (UA) Negative (Negative); Hyaline Casts,Urine 1 /lpf (0-2); Ketones,Urine Negative (Negative); Leukocyte Esterase,Urine Trace (Negative); Mucus,Urine Occasional /hpf; Nitrite,Urine Negative (Negative); Protein,Urine Trace (Negative); RBC,Urine 1 /hpf (0-5); Specific Gravity,Urine 1.024 (1.001-1.035); Squamous Epithelial Cell,Urine 9 /hpf (0-4); Urobilinogen,Urine <2.0 mg/dL (<2.0); WBC,Urine 4 /hpf (0-5)
[2020-02-14 15:32] LABS: Basophils # (A) 0.1 k/uL (0-0.2); Basophils % (A) 2 %; Eosinophils # (A) 0.3 k/uL (0-0.7); Eosinophils % (A) 5 %; HCT 42.1 % (34.0-46.0); HGB 14.4 gm/dL (11.4-16.0); Lymphocytes # (A) 3.1 k/uL (1.0-4.8); Lymphocytes % (A) 45 %; MCH 29.5 pg (25.0-35.0); MCHC 34.1 g/dL (31.0-37.0); MCV 86.6 fL (80.0-100.0); Mean Platelet Volume 6.9; Monocytes # (A) 0.5 k/uL (0-1.0); Monocytes % (A) 7 %; Neutrophils # (A) 2.9 k/uL (1.3-7.7); Neutrophils % (A) 41 %; Platelet Count 336 k/uL (150-450); RBC 4.86 m/uL (3.80-5.40); RDW 11.7 % (11.5-15.5)
[2020-02-14 15:49] LABS: ALT 26 U/L (4-34); AST 27 U/L (14-36); African American GFR (CKD) >90 (>60 ml/min/1.73 sqM); Albumin 4.4 g/dL (3.5-5.0); Alkaline Phosphatase 41 U/L (38-126); Anion Gap 8 mmol/L; Blood Urea Nitrogen 11 mg/dL (7-17); Calcium 10.1 mg/dL (8.4-10.2); Carbon Dioxide 28 mmol/L (22-30); Chloride 104 mmol/L (98-107); Glucose 104 mg/dL (74-99); Lipase 81 U/L (23-300); Non-African American GFR(CKD) 86 (>60 ml/min/1.73 sqM); Potassium 4.3 mmol/L (3.5-5.1); Sodium 140 mmol/L (137-145); Total Bilirubin 0.4 mg/dL (0.2-1.3); Total Protein 7.7 g/dL (6.3-8.2)
[2020-02-14 16:29] VITALS: BP 98/66; PULSE 86; RESP 18; TEMP 98
== END 2020-02-14 16:30 | disposition home or self-care (01) ==
LOC: EC 14:35
DX: R35.0 Frequency of micturition (principal); R14.0 Abdominal distension (gaseous); Z91.041 Radiographic dye allergy status; Z87.440 Personal history of urinary (tract) infections; Z90.49 Acquired absence of other specified parts of digestive tract; Z87.891 Personal history of nicotine dependence; Z90.710 Acquired absence of both cervix and uterus
CPT/HCPCS: 36415; 93005; 80053; 83690; 85025; 81001; 87086; 99283; 96374; J1885

== ENCOUNTER 2020-05-14 21:17 | Emergency (ER) | payer OTHER ==
--- NOTE | 2020-05-14 23:19 | XR ---
EXAMINATION TYPE: XR chest 2V DATE OF EXAM: 05/14/2020 COMPARISON: NONE HISTORY: Chest pain TECHNIQUE: 2 views FINDINGS: Heart and mediastinum are normal. Lungs are clear. Diaphragm is normal. Bony thorax appears normal. IMPRESSION: Normal chest. Normal heart.
[2020-05-15] MEDS ORDERED: CYCLOBENZAPRINE 10MG STARTER 3 TAB BTL PO STA (00:08)
[2020-05-15] MEDS ORDERED: ACET/COD 300 MG/30 MG STARTER PACK 6 TAB BTL PO STA (00:08)
--- NOTE | 2020-05-15 00:10 | ED ---
General Adult HPI - General Chief complaint: Chest Pain Stated complaint: chest injury Time Seen by Provider: 05/14/20 23:31 Source: patient Mode of arrival: ambulatory Limitations: no limitations - History of Present Illness Initial comments: 35-year-old female patient presents to the emergency department today for evaluation of chest pain and bilateral rib pain. States she was wrestling with her significant other a couple of days ago and he landed on her chest. States she heard a couple of pops has been having pain since. States it hurts worse w ith deep inspiration and movement. Denies any palpitations or shortness of breath. She has been taking Tylenol Motrin which does seem to help. Denies any cough or hemoptysis. Denies any other injuries. - Related Data Home Medications Medication Instructions Recorded Confirmed Propranolol LA [Inderal LA] 80 mg PO DAILY 05/12/19 05/12/19 Previous Rx's Medication Instructions Recorded Divalproex ER [Depakote ER] 750 mg PO HS #45 tab.er.24h 05/19/19 Melatonin 3 mg PO HS tablet 05/19/19 QUEtiapine [SEROquel] 50 mg PO BID #60 tab 05/19/19 Cyclobenzaprine [Flexeril] 10 mg PO TID #15 tab 05/15/20 predniSONE 50 mg PO DAILY #3 tab 05/15/20 Allergies Allergy/AdvReac Type Severity Reaction Status Date / Time Iodine and Iodide Containing Allergy Unknown Verified 05/14/20 22:08 Produc Review of Systems ROS Statement: Those systems with pertinent positive or pertinent negative responses have been documented in the HPI. ROS Other: All systems not noted in ROS Statement are negative. Past Medical History Additional Past Medical History / Comment(s): depression, anxiety History of Any Multi-Drug Resistant Organisms: None Reported Past Surgical History: Bladder Surgery, Hysterectomy, Tubal Ligation Past Psychological History: Anxiety, Depression, Schizophrenia Smoking Status: Former smoker Past Alcohol Use History: Occasional Past Drug Use History: Marijuana General Exam Limitations: no limitations General appearance: alert, in no apparent distress Respiratory exam: Present: normal lung sounds bilaterally, chest wall tenderness. Absent: respiratory distress, wheezes, rales, rhonchi, stridor Cardiovascular Exam: Present: regular rate, normal rhythm, normal heart sounds. Absent: systolic murmur, diastolic murmur, rubs, gallop, clicks GI/Abdominal exam: Present: soft, normal bowel sounds. Absent: distended, tenderness, guarding, rebound, rigid Neurological exam: Present: alert, oriented X3, CN II-XII intact Psychiatric exam: Present: normal affect, normal mood Skin exam: Present: warm, dry, intact, normal color. Absent: rash Course Vital Signs 05/14/20 05/14/20 05/15/20 22:03 23:07 00:20 Temperature 98.0 F 98.4 F Pulse Rate 99 68 66 Respiratory 20 17 16 Rate Blood Pressure 115/82 116/84 115/81 O2 Sat by Pulse 97 100 100 Oximetry Medical Decision Making - Medical Decision Making 35-year-old female patient presents to the emergency department today for evaluation of chest pain and rib pain after an injury couple days ago. Physical examination did reveal some chest wall tenderness. Lungs are clear to auscultation with good air movement. Chest x-ray is negative. She has no focal tenderness or pain that would indicate a rib fracture. Did discuss possibility of costochondritis related to the injury. She'll be discharged with pain medication. She is instructed to follow-up with the primary care physician for recheck in 1-2 days. Return parameters were discussed in detail. She verbalizes understanding and agrees with this plan. Case discussed with my attending Dr. Benjamin. - Radiology Data Radiology results: report reviewed, image reviewed Two-view x-ray of the chest is obtained. Report is reviewed in its entirety. Impression by Dr. Hernandez shows normal chest. Normal heart. Disposition Clinical Impression: Costochondritis Disposition: HOME SELF-CARE Condition: Good Instructions (If sedation given, give patient instructions): Costochondritis (ED) Additional Instructions: Take medications as directed. Follow-up with the primary care physician for recheck in 1-2 days. Return to the emergency department for any new, worsening, or concerning symptoms. Prescriptions: Cyclobenzaprine [Flexeril] 10 mg PO TID #15 tab predniSONE 50 mg PO DAILY #3 tab Is patient prescribed a controlled substance at d/c from ED?: No Referrals: Nonstaff,Physician [REFERRING] - 1-2 days Time of Disposition: 00:09
[2020-05-15 00:38] VITALS: BP 115/81; PULSE 66; RESP 16; TEMP 98.4
== END 2020-05-15 00:39 | disposition home or self-care (01) ==
LOC: EC 21:17
DX: M94.0 Chondrocostal junction syndrome [Tietze] (principal); Z91.048 Other nonmedicinal substance allergy status; Z87.891 Personal history of nicotine dependence
CPT/HCPCS: 71046; 99283

== ENCOUNTER 2020-07-01 18:35 | Emergency (ER) | payer OTHER ==
[2020-07-01 18:51] VITALS: BP 107/76; PULSE 78; RESP 16; TEMP 97.9
--- NOTE | 2020-07-01 19:35 | XR ---
EXAMINATION: XR chest 2V DATE AND TIME: 07/01/2020 7:25 PM CLINICAL INDICATION: PHH; chest pain TECHNIQUE: Departmental protocol COMPARISON: 05/14/2020 FINDINGS: The lungs are clear. The pleural spaces are negative. The cardiac silhouette is not enlarged. The remainder of the mediastinal silhouette is unremarkable. The skeletal structures and soft tissues are negative for acute findings. IMPRESSION: NO ACUTE PROCESS.
== END 2020-07-01 19:58 ==
LOC: EC 18:35
DX: R07.9 Chest pain, unspecified (principal)
CPT/HCPCS: 71046; 99499

== ENCOUNTER 2020-09-10 09:07 | Inpatient (IN) | payer MEDICAID, OTHER ==
[2020-09-10 09:53] LABS: Amphetamine Screen,Urine Detected (NotDetected); Barbiturate Screen,Urine Not Detected (NotDetected); Benzodiazepines Screen,Urine Not Detected (NotDetected); Cocaine Screen,Urine Not Detected (NotDetected); Methadone Screen, Urine Not Detected (NotDetected); Opiate Screen,Urine Not Detected (NotDetected); Oxycodone Screen, Urine Not Detected (NotDetected); Phencyclidine Screen,Urine Not Detected (NotDetected); Tricyclic Antidepressant,Urine Not Detected (NotDetected); Urn Cannabinoid Scrn Detected (NotDetected)
--- NOTE | 2020-09-10 10:32 | ED ---
Psych HPI - General Chief Complaint: Psychiatric Symptoms Stated Complaint: mental health, med refill Time Seen by Provider: 09/10/20 09:11 Source: patient, RN notes reviewed Mode of arrival: ambulatory - History of Present Illness Initial Comments: Patient is a 35-year-old female that presents to the emergency department complaining of running out of her antidepressants and suicidal ideations. She notes that she recently just moved report account several months ago has been unable to establish primary care. She notes that she used to see [facility] [place] but they dropped her. She notes that she's been without medications for the past week and a half and notes that she started to feel more suicidal. She denied any other issues or complaints at this time. She was a well-appearing 35-year-old female. She denied any chest pain first breath headache nausea vomiting diarrhea constipation fever fatigue chills. - Related Data Home Medications Medication Instructions Recorded Confirmed ALPRAZolam [Xanax] 1 mg PO ONCE 09/10/20 09/10/20 Propranolol HCl [Propranolol HCl 120 mg PO DAILY 09/10/20 09/10/20 ER] Sertraline [Zoloft] 50 mg PO DAILY 09/10/20 09/10/20 Previous Rx's Medication Instructions Recorded Divalproex ER [Depakote ER] 750 mg PO HS #45 tab.er.24h 05/19/19 QUEtiapine [SEROquel] 50 mg PO BID #60 tab 05/19/19 Allergies Allergy/AdvReac Type Severity Reaction Status Date / Time Iodine and Iodide Containing Allergy Unknown Verified 09/10/20 09:40 Produc Review of Systems ROS Statement: Those systems with pertinent positive or pertinent negative responses have been documented in the HPI. ROS Other: All systems not noted in ROS Statement are negative. Past Medical History Additional Past Medical History / Comment(s): depression, anxiety History of Any Multi-Drug Resistant Organisms: None Reported Past Surgical History: Bladder Surgery, Hysterectomy, Tubal Ligation Past Psychological History: Anxiety, Depression, Schizophrenia Smoking Status: Former smoker Past Alcohol Use History: Occasional Past Drug Use History: Marijuana General Exam Limitations: no limitations General appearance: alert, in no apparent distress Head exam: Present: atraumatic, normocephalic, normal inspection Eye exam: Present: normal appearance, PERRL, EOMI. Absent: scleral icterus, conjunctival injection, periorbital swelling Neck exam: Present: normal inspection Respiratory exam: Present: normal lung sounds bilaterally. Absent: respiratory distress, wheezes, rales, rhonchi, stridor Cardiovascular Exam: Present: regular rate, normal rhythm, normal heart sounds. Absent: systolic murmur, diastolic murmur, rubs, gallop, clicks GI/Abdominal exam: Present: soft, normal bowel sounds. Absent: distended, tenderness, guarding, rebound, rigid Extremities exam: Present: normal inspection, full ROM, normal capillary refill. Absent: tenderness, pedal edema, joint swelling, calf tenderness Neurological exam: Present: alert, oriented X3 Psychiatric exam: Present: normal affect, normal mood Skin exam: Present: warm, dry, intact, normal color. Absent: rash Course Vital Signs 09/10/20 09/10/20 09:07 12:15 Temperature 97.3 F L 97.7 F Pulse Rate 81 72 Respiratory 16 18 Rate Blood Pressure 103/69 92/59 O2 Sat by Pulse 94 L 98 Oximetry Medical Decision Making - Medical Decision Making 35female complains suicidal ideations running out of her psychiatric medications. Urine drug screen, alcohol breath test ordered. EPS will be notified to evaluate patient. Case discussed with Dr. Fonseca., Patient will be admitted inpatient per EPS. - Lab Data Lab Results 09/10/20 09/10/20 Range/Units 09:00 12:15 Urine Opiates Screen Not Detected (NotDetected) Ur Oxycodone Screen Not Detected (NotDetected) Urine Methadone Screen Not Detected (NotDetected) Ur Propoxyphene Screen Not Detected (NotDetected) Ur Barbiturates Screen Not Detected (NotDetected) U Tricyclic Antidepress Not Detected (NotDetected) Ur Phencyclidine Scrn Not Detected (NotDetected) Ur Amphetamines Screen Detected H (NotDetected) U Methamphetamines Scrn Detected H (NotDetected) U Benzodiazepines Scrn Not Detected (NotDetected) Urine Cocaine Screen Not Detected (NotDetected) U Marijuana (THC) Screen Detected H (NotDetected) Coronavirus (PCR) Not Detected (Not Detectd) Disposition Clinical Impression: Suicidal thoughts Disposition: ADMITTED IP TO THIS HOSP Condition: Stable Is patient prescribed a controlled substance at d/c from ED?: No Referrals: None,Stated [Primary Care Provider] - 1-2 days Time of Disposition: 12:57
[2020-09-10] MEDS ORDERED: MAGNESIUM HYDROXIDE 2,400 MG/10 ML CUP PO PRN (14:08)
[2020-09-10] MEDS ORDERED: ACETAMINOPHEN TAB 325 MG TAB PO PRN (14:08)
[2020-09-10] MEDS ORDERED: MAG HYDROX/AL HYDROX/SIMETH 30 ML CUP PO PRN (14:08)
[2020-09-10] MEDS ORDERED: HALOPERIDOL LACTATE 5 MG/ML 1 ML VIAL IM PRN (14:10)
[2020-09-10] MEDS ORDERED: LORazepam 1 MG TAB PO PRN (14:10)
[2020-09-10] MEDS: LORazepam 1 MG TAB PO PRN ×2 (14:42→21:06)
--- NOTE | 2020-09-10 16:34 | P.HPMEDMHU ---
History of Present Illness H&P Date: 09/10/20 History of Presenting Illness: Patient is a 35-year-old female with a past medical history of polysubstance abuse, depression and mood disorder. She is currently admitted to inpatient mental health unit secondary to reports of increased depression with suicidal ideations. We have been consulted for continued medical management throughout her hospitalization. Urine drug screen positive for amphetamines, methamphetamines, and marijuana. Patient seen and fully evaluated on unit unit. Upon physical exam patient reports history of palpitations secondary to her anxiety in which she takes propranolol to treat. She currently reports thoughts of depression and suicidal ideations without a plan. She denies having any homicidal ideations. Patient denies having any other complaints at this time including headache, lightheadedness, dizziness, chest pain, palpitations, shortness of breath, changes in appetite, nausea, vomiting, abdominal pain, or any difficulties with her changes in his urinary or bowel function. Patient denies having any visual, tactile, or auditory hallucinations. Patient reports recent use of methamphetamines and marijuana and states that the methamphetamines were placed in her marijuana. Patient denies alcohol use and denies nicotine use. Review of systems: Pertinent positives and negatives as discussed in HPI, a complete review of systems was performed and all other systems are negative. Physical exam: Vital signs reviewed and stable. General: Nontoxic, no distress and appears stated age. Derm: Skin warm and dry, normal coloration for ethnicity. Head: Atraumatic, normocephalic and symmetric. Eyes: EOMs intact, no lid lag, and anicteric sclera Mouth: no lip lesions, mucus membranes moist Cardiovascular: regular rate and rhythm with normal S1S2, no murmur, positive posterior tibial pulses bilaterally, and cap refill < 2 seconds. Lungs: Respirations even, regular, and unlabored on room air. Lungs CTA bilaterally, no rhonchi, no rales, no wheezing, and no accessory muscle usage. Abdominal: soft, nontender to palpation, no guarding, no appreciable organomegaly Ext: ROM intact. No gross muscle atrophy, no edema, no contractures Neuro: Speech clear, face symmetrical and CN II-XII grossly intact with no noted focal neuro deficits Psych: Alert and oriented to person, place, time, and situation. Anxious affect . Assessment and Plan of Care: Polysubstance abuse -UDS positive for amphetamines, methamphetamines, and marijuana -Encouragement and education regarding the risks of continued drug use up to and including . Suicidal ideations with history of depression and mood disorder -Suicide precautions in place. -Management per primary admitting psychiatric team. -Order was placed for valproic acid level as patient takes Depakote 750 mg nightly Thank you for allowing us to participate in the care of this pleasant patient. Do not hesitate to contact us with questions. RN to notify provider with any needs. Someone can be reached from the [facility] hospitalist group all hours of the day at [phone] or via [employer]. Past Medical History Additional Past Medical History / Comment(s): depression, anxiety History of Any Multi-Drug Resistant Organisms: None Reported Past Surgical History: Bladder Surgery, Hysterectomy, Tubal Ligation Past Psychological History: Anxiety, Depression, Schizophrenia Smoking Status: Former smoker Past Alcohol Use History: Occasional Past Drug Use History: Marijuana Medications and Allergies Home Medications Medication Instructions Recorded Confirmed Type Divalproex ER [Depakote ER] 750 mg PO HS #45 tab.er.24h 05/19/19 09/10/20 Rx QUEtiapine [SEROquel] 50 mg PO BID #60 tab 05/19/19 09/10/20 Rx ALPRAZolam [Xanax] 1 mg PO ONCE 09/10/20 09/10/20 History Propranolol HCl [Propranolol HCl 120 mg PO DAILY 09/10/20 09/10/20 History ER] Sertraline [Zoloft] 50 mg PO DAILY 09/10/20 09/10/20 History Allergies Allergy/AdvReac Type Severity Reaction Status Date / Time Iodine and Iodide Containing Allergy Unknown Verified 09/10/20 09:40 Produc Physical Exam Vitals: Vital Signs Temp Pulse Resp BP Pulse Ox 09/10/20 12:15 97.7 F 72 18 92/59 98 09/10/20 09:07 97.3 F L 81 16 103/69 94 L Intake and Output 09/10/20 09/10/20 09/10/20 06:59 14:59 22:59 Other: Weight 63.503 kg Cranial Nerve Examination - Cranial Nerves Cranial Nerve II- Optic: Intact Cranial Nerve III- Oculomotor: Intact Cranial Nerve IV- Trochlear: Intact Cranial Nerve V- Trigeminal: Intact Cranial Nerve - Abducens: Intact Cranial Nerve VII- Facial: Intact Cranial Nerve VIII- Auditory: Intact Cranial Nerve IX- Glossopharyngeal: Intact Cranial Nerve X- Vagus: Intact Cranial Nerve XI- Accessory: Intact Cranial Nerve XII- Hypoglossal: Intact Results Labs: Abnormal Lab Results - Last 24 Hours (Table) 09/10/20 Range/Units 09:00 Ur Amphetamines Screen Detected H (NotDetected) U Methamphetamines Scrn Detected H (NotDetected) U Marijuana (THC) Screen Detected H (NotDetected)
[2020-09-10] MEDS: DIVALPROEX ER 250 MG TAB.ER.24H PO SCH (21:03)
[2020-09-11] MEDS: PROPRANOLOL LA 60 MG CAP.SA.24H PO SCH (07:46)
[2020-09-11] MEDS: LORazepam 1 MG TAB PO PRN (07:48)
[2020-09-11 12:36] LABS: Basophils % (A) 1 %; Eosinophils # (A) 0.2 k/uL (0-0.7); Eosinophils % (A) 2 %; HCT 40.3 % (34.0-46.0); HGB 13.3 gm/dL (11.4-16.0); Lymphocytes # (A) 2.4 k/uL (1.0-4.8); Lymphocytes % (A) 29 %; MCH 28.9 pg (25.0-35.0); MCV 87.7 fL (80.0-100.0); Mean Platelet Volume 7.3; Monocytes # (A) 0.3 k/uL (0-1.0); Monocytes % (A) 4 %; Neutrophils # (A) 5.3 k/uL (1.3-7.7); Neutrophils % (A) 64 %; Platelet Count 397 k/uL (150-450); RDW 12.1 % (11.5-15.5); WBC 8.2 k/uL (3.8-10.6)
[2020-09-11 12:46] LABS: ALT 14 U/L (4-34); AST 19 U/L (14-36); African American GFR (CKD) >90 (>60 ml/min/1.73 sqM); Albumin 4.4 g/dL (3.5-5.0); Alkaline Phosphatase 60 U/L (38-126); Anion Gap 9 mmol/L; Blood Urea Nitrogen 8 mg/dL (7-17); Calcium 10.2 mg/dL (8.4-10.2); Carbon Dioxide 26 mmol/L (22-30); Chloride 103 mmol/L (98-107); Glucose 95 mg/dL (74-99); Non-African American GFR(CKD) >90 (>60 ml/min/1.73 sqM); Potassium 4.6 mmol/L (3.5-5.1); Sodium 138 mmol/L (137-145); Total Bilirubin 0.4 mg/dL (0.2-1.3); Total Protein 7.5 g/dL (6.3-8.2)
[2020-09-11] MEDS: SERTRALINE 50 MG TAB PO SCH (14:28)
[2020-09-11] MEDS: LORazepam 0.5 MG TAB PO PRN (16:52)
[2020-09-11 17:58] LABS: Chol/HDL Ratio 4.28; Cholesterol 171 mg/dL (0-200)
[2020-09-11 20:33] LABS: Hemoglobin A1C 5.1 % (4.0-6.0)
[2020-09-11] MEDS: QUEtiapine 200 MG TAB PO SCH (21:06)
[2020-09-11] MEDS: DIVALPROEX ER 250 MG TAB.ER.24H PO SCH (21:06)
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
[2020-09-12] MEDS: SERTRALINE 50 MG TAB PO SCH (08:10)
[2020-09-12] MEDS: QUEtiapine 100 MG TAB PO SCH (08:10)
[2020-09-12] MEDS: PROPRANOLOL LA 60 MG CAP.SA.24H PO SCH (09:39)
[2020-09-12] MEDS: LORazepam 0.5 MG TAB PO PRN (15:31)
[2020-09-12] MEDS: QUEtiapine 200 MG TAB PO SCH (20:00)
[2020-09-12] MEDS: DIVALPROEX ER 250 MG TAB.ER.24H PO SCH (20:00)
--- NOTE | 2020-09-12 23:41 | P.PN ---
Progress Note - Text Progress Note Date: 09/12/20 Subjective: Patient was seen today as a cross coverage for Dr. Moyer. The patient was evaluated, chart reviewed, case discussed with the treatment team. Patient reports better sleep last night, and appetite was reported as " better". Patient has not been going to groups and other unit activities. The patient is compliant with her medications and denies any adverse reactions. Patient reports continued to have some depression and bouts of feeling hopeless but denies suicidal ideation today. She denies any hallucinations today. Patient was tired and stayed in her room for most of the day. Objective: Vitals has been reviewed. Mental status examination; Appearance: Appears stated age, fairly groomed, average body built, and no specific features. Gait/ posture: Steady gait, normal arm swinging, no abnormal movements, with relaxed posture. Attitude and Behavior: engaged, cooperative, fair eye contact during course of interview. Motor Activity: slow psychomotor activity. Speech: spontaneous, slow rate, rhythm, and articulation. Soft volume. Not pressured. Language: Articulating, naming objects and repeat phrases. Mood: depressed. Affect: Restricted Thought process: linear, goal-directed. Association: intact. Thought content: Denies delusions, denies suicidal thoughts, denies homicidal thoughts, denies intentions, or plans. Perception: Denies current hallucinations. Alertness: No impairment. Concentration: impaired Orientation: Patient was oriented to time, person, place, and situation. Insight regarding psychiatric condition: fair Judgment regarding daily activities and social situation: fair Impulse control: fair Assessment: Bipolar disorder, depressive episode with psychosis Cannabis use disorder, moderate. Anxiety disorder, unspecified. Plan: Continue inpatient level of care due to 8 for further monitoring and stabilization Precautions: Continue 15 minutes check for safety. Consider medical consultation if any acute medical issues arise. Provide the patient individual, group therapy, substance use disorder counseling to give better insight and learn coping skills. Medications: Continue Seroquel 100 mg am and 200 mg HS for mood stabilization and psychotic s ymptoms. Continue Depakote 750 mg HS for mood stabilization. Continue Zoloft 50 mg daily for depression and anxiety Ativan PRN for severe anxiety. Continue as needed medications for psychiatric emergencies including psychosis, agitation and anxiety. Continue non-psychiatric medications for medical conditions as recommended by the medical team. Discharge patient to OUTPATIENT services upon a stabilization
[2020-09-13] MEDS: SERTRALINE 50 MG TAB PO SCH (08:21)
[2020-09-13] MEDS: QUEtiapine 100 MG TAB PO SCH (08:21)
[2020-09-13] MEDS: PROPRANOLOL LA 60 MG CAP.SA.24H PO SCH (08:23)
--- NOTE | 2020-09-13 11:50 | P.PN ---
Progress Note - Text Progress Note Date: 09/13/20 Interval History: Patient was seen sitting in bed and was directable and agreeable to speak with fiction and nonfiction writer prose in the office. The patient is reporting that she has elevated anxiety. She states that she is upset that she is never prescribed medication that she needs. She reports that Klonopin is the only medication that helps her and that her anxiety becomes overwhelming which leads to her feeling increasingly depressed and suicidal. She becomes quite agitated at this provider but is able to calm down as the interview progressed. The patient reports that she has been off her medications for 2 weeks prior to this admission to this hospital. She says that during that time, she had increased depression including suicidal ideation. She is currently not reporting any suicidal or homicidal ideation, intention, and/or plan. She is currently not reporting any auditory or visual hallucinations. She does report elevated paranoia and anxiety. She states that she feels like people are constantly watching her and judging her. She does acknowledge that this is not likely the case but that she cannot help but feel this way. She is not reporting any issues regarding her sleep or appetite. The patient does state that she has very intrusive thoughts, often picturing someone close to her being killed or dying. She does report a significant history of trauma, stating that she witnessed her grandfather and became quite tearful when talking about the subject. The patient also reports multiple family deaths within 1 week span. The patient has been adherent with her medications and is not endorsing any significant side effects at this time except for low blood pressure. She reports that she was placed on Inderal for anxiety but states that it has not helped. The patient does report that she does not want to go up on her Zoloft or discontinue her morning Seroquel. The patient is concerned that she will have sexual side effects of Zoloft was to be increased. Mental Status Exam: General Appearance: The patient appears to be her stated age, is alert, d irectable, and cooperative. Behavior: Psychomotor to these elevated. Eye contact is intense. Speech: Patient's speech is pressured at times and difficult to interrupt. Hyperverbal and loud. She was able to calm down and speak in a normal tone of voice as the interview progressed. Mood/Affect: Mood is extremely anxious. Affect is congruent and nervous but also irritable. Suicidality/Homicidality: Patient denies having any suicidal or homicidal ideation intent or plan. Perceptions: Patient denies any visual hallucinations and denies any auditory hallucinations Though content/process: No delusional thought content is endorsed. Some paranoia. Thought process appears to be dysphoric and rigid. Memory and concentration: AOX3, grossly intact for the purposes of this session Judgment and insight: Improving mildly Vital Signs Temp 98.2 F 09/13/20 07:29 Pulse 92 09/13/20 08:24 Resp 16 09/13/20 08:24 BP 84/53 09/13/20 08:24 Pulse Ox 97 09/13/20 00:31 Intake & Output 09/12/20 09/13/20 09/13/20 18:59 06:59 18:59 Weight 58.5 kg Assessment Bipolar disorder, depressive episode with psychosis Cannabis use disorder, moderate. Anxiety disorder, unspecified. Rule out PTSD Plan: -Patient continues to meet criteria for inpatient psychiatric admission for symptom stabilization and safety. Patient signed herself in adult formal voluntary. -Medications: Discontinue propranolol due to hypotension. We will order clonidine for possible PTSD to start tomorrow with parameters set for her blood pressure. Continue Seroquel 100 mg by mouth every morning, and 200 g by mouth at bedtime for mood stabilization Continue Depakote 750 mg by mouth at bedtime for mood stabilization Continue Zoloft 50 mg by mouth daily for depression/anxiety -When necessary Ativan and Geodon for agitation/aggression. -NRT - nicotine patch -SW on board for discharge planning. Encouraged the patient to participate in milieu.
[2020-09-13] MEDS: DIVALPROEX ER 250 MG TAB.ER.24H PO SCH (20:45)
[2020-09-13] MEDS: QUEtiapine 200 MG TAB PO SCH (20:46)
[2020-09-14] MEDS: SERTRALINE 50 MG TAB PO SCH (08:24)
[2020-09-14] MEDS: QUEtiapine 100 MG TAB PO SCH (08:24)
[2020-09-14] MEDS: cloNIDine HCL 0.1 MG TAB PO SCH ×2 (08:24→20:33)
[2020-09-14] MEDS: guaiFENesin 600 MG TABLET.ER PO PRN (12:23)
--- NOTE | 2020-09-14 13:11 | P.PN ---
Progress Note - Text Progress Note Date: 09/14/20 Interval History: Patient was seen lying down in bed and was agreeable to speak with sba underwriter in her room. The patient is currently reporting that she continues to express elevated anxiety. She reports that she had a five-minute panic attack this morning. She described palpitations, chest pain, and shortness of breath. She reports that after 5 minutes, and the symptoms subsided. She is currently not reporting any suicidal or homicidal ideation, intention, and/or plan. She is not reporting any auditory visual hallucinations. She does report some paranoia, stating that she feels like other people are constantly judging her. She has been adherent with the medications and is not endorsing any significant side effects at this time. The patient was unable to start any clonidine due to her blood pressure being low. She is tolerating the discontinuation of her propanolol well. The patient does express that she is experiencing some upper respiratory symptoms at this time. She endorses some congestion and phlegm. She denies any anosmia. She reports no issues with fevers or chills. The patient does state that she has been vaccinated for Covid. Mental Status Exam: General Appearance: The patient appears to be her stated age, is alert, directable, and cooperative. Behavior: Psychomotor to these elevated. Eye contact is intense. Speech: Patient's speech is pressured at times and difficult to interrupt. Hyperverbal and loud. She was able to calm down and speak in a normal tone of voice as the interview progressed. Mood/Affect: Mood is extremely anxious. Affect is congruent and nervous but also irritable. Suicidality/Homicidality: Patient denies having any suicidal or homicidal ideation intent or plan. Perceptions: Patient denies any visual hallucinations and denies any auditory hallucinations Though content/process: No delusional thought content is endorsed. Some paranoia. Thought process appears to be dysphoric and rigid. Memory and concentration: AOX3, grossly intact for the purposes of this session Judgment and insight: Improving mildly Vital Signs Temp 97.3 F L 09/14/20 10:25 Pulse 120 H 09/14/20 10:25 Resp 16 09/13/20 08:24 BP 96/68 09/14/20 10:25 Pulse Ox 97 09/13/20 00:31 Assessment Bipolar disorder, depressive episode with psychosis Cannabis use disorder, moderate. Anxiety disorder, unspecified. Rule out PTSD Plan: -Patient continues to meet criteria for inpatient psychiatric admission for symptom stabilization and safety. Patient signed herself in adult formal voluntary. -Medications: Clonidine 0.1 mg by mouth twice a day was initiated for PTSD with parameters. Continue Seroquel 100 mg by mouth every morning, and 200 g by mouth at bedtime for mood stabilization Continue Depakote 750 mg by mouth at bedtime for mood stabilization Continue Zoloft 50 mg by mouth daily for depression/anxiety -When necessary Ativan and Geodon for agitation/aggression. -NRT - nicotine patch -SW on board for discharge planning. Encouraged the patient to participate in milieu.
[2020-09-14] MEDS ORDERED: IBUPROFEN 600 MG TAB PO PRN (17:19)
[2020-09-14] MEDS: LIDOCAINE 5% PATCH TOPICAL SCH (17:51)
[2020-09-14] MEDS: DIVALPROEX ER 250 MG TAB.ER.24H PO SCH (20:31)
[2020-09-14] MEDS: QUEtiapine 200 MG TAB PO SCH (20:33)
[2020-09-15] MEDS: guaiFENesin 600 MG TABLET.ER PO PRN (02:55)
[2020-09-15] MEDS: QUEtiapine 100 MG TAB PO SCH (08:16)
[2020-09-15] MEDS: LIDOCAINE 5% PATCH TOPICAL SCH (08:16)
[2020-09-15] MEDS: SERTRALINE 50 MG TAB PO SCH (08:17)
[2020-09-15] MEDS: cloNIDine HCL 0.1 MG TAB PO SCH (08:17)
[2020-09-15 09:57] VITALS: BP 92/53; PULSE 88; RESP 16; TEMP 97.2
--- NOTE | 2020-09-15 11:44 | P.DS ---
Providers Date of admission: 09/10/20 14:00 Expected date of discharge: 09/15/20 Attending physician: Deepak Moyer MD Consults: 09/10/20 14:08 Consult Physician Routine Consulting Provider: Rita Carpenter Consult Reason/Comments: medical management Do you want consulting provider notified?: Yes Primary care physician: Stated None - Discharge Diagnosis(es) (1) Bipolar 1 disorder, depressed, severe Current Visit: Yes Status: Acute Priority: High (2) PTSD (post-traumatic stress disorder) Current Visit: Yes Status: Chronic Priority: Medium (3) Cannabis use disorder, moderate, dependence Current Visit: Yes Status: Chronic Priority: Medium Hospital Course: Admission HPI: Initial psychiatric evaluation was completed by Dr. Farley on 09/11/2020 who wrote: "The patient is a 35-year-old female who currently lives with her boyfriend, unemployed on SSD, has psychiatric history of bipolar disorder with psychosis, and denies any medical history. The patient has been admitted to our inpatient psychiatric services after been transferred from [facility]. Patient was initially self- referred to ED because of suicidal ideation. The patient has been admitted on voluntary basis to our service. CHIEF COMPLAINT: suicidal ideation and no happiness. HISTORY OF PRESENT ILLNESS: Patient reports worsening of her mood and depression symptoms. She states, nothing in my brain except the anger and the dullness. She reports worsening of anger and suicidal thoughts for the past two days. Patient has been off her psych medications for the last two weeks because she couldn't find a doctor to prescribe her meds. She reports was maintained on Zoloft 100 milligram, Seroquel 300 milligram twice daily, Depakote 750 milligram at bedtime, and Haldol twice daily. also, she was taking Ativan in the past for anxiety symptoms. The patient lost her outpatient connection with [facility] with the last time seen by them few months ago. she reports symptoms of depression with depressed mood, lack of motivation, diminished to pleasure, and feeling hopeless, worthless, and suicidal for the past few weeks. She reports manic symptoms which could last for one week then crashes to depression. She described manic symptoms of impulsive behavior with neck oversleep and unusual increase in energy. She reports history of auditory hallucinations and she's currently feeling paranoid. Denies any current habits enations. Denies any history of self- injurious behavior. Reports previous suicidal attempt when she was 10 years old period. Reports mood swings with anger and agitation. She has severe anger outburst. Addressed sleep difficulties and she has very high anxiety. denies any appetite changes period Previous psychiatric hospitalizations. Last time was admitted to this unit was May of 2019.Reports most recent psych hospitalization was at to [facility] two months ago. Reports previous suicidal attempts when she was 10-year-old, try to hang herself. Currently not following with outpatient psychiatric treatment. Used to see psychiatrist at [facility]. currently not taking her medications because she couldn't find a prescriber, and reports most recent psych medications Zoloft 100 milligram daily, Seroquel 300 milligrams twice daily, Depakote 750 milligram at bedtime, and Haldol twice daily." Hospital course: Upon admission to the unit patient was initially endorsing significant symptoms of depression, anger, and elevated anxiety. The patient was started on Seroquel for mood stabilization and psychotic symptoms and her home medication of Depakote was continued. The patient was also started on Zoloft to address her depression and anxiety symptoms. When evaluated by this provider, the patient continued to express elevated anxiety and became quite irritable and labile. She expressed that "no, one is giving me the medication that actually need, which is Ativan." The patient was educated on her diagnoses and why Ativan is not prescribed as readily as it was before with psychoeducation being given discussing the risks of the medication and long-term use of the medication, leading to dependence and tolerance. The patient was also evaluated by the medical team for history and physical examination. The patient did have significantly low blood pressure during this admission and therefore her propranolol was discontinued. Initially, the plan was to transition the patient to clonidine for management of PTSD, but the patient continued to have low blood pressure, despite discontinuing her propranolol and therefore could not receive any clonidine. Despite this, the patient did display gradual improvement in regards her target symptoms of mood lability, irritability, anxiety, and depression. On the day of discharge, the patient is not reporting any suicidal or homicidal ideation, intention, and/or plan. She is not reporting any auditory or visual hallucinations. She reported no paranoia or other delusions. The patient does express that she feels some restlessness due to her medications and was counseled at length that this may be a side effect of Seroquel. The patient does not wish to decrease her Seroquel at this time and will follow-up in the outpatient setting regarding this medication and its possible side effect. The patient was counseled on lengthening points of being adherent with her medications and following up with her outpatient appointments. The patient was also counseled at length on benzodiazepines as well as other illicit substances and how they may affect her mental health negatively. Prior to discharge, family meeting be arranged by social professionals. Tranxene questions and ensure safety.. Mental status exam: General Appearance: Patient appears to be stated age is alert, pleasant, and cooperative. Patient is in no acute distress and has fair hygiene and grooming. . Patient is wearing glasses. Behavior: Patient is calmly seated without any agitated behavior.. Psychomotor activity is normal. Eye contact is appropriate. Speech: Patient's speech is fluent and nonpressured. Spontaneous, with normal rate, tone, volume. Mood/Affect: Patient reports their mood is "much better", affect is congruent and euthymic and at times bright. Suicidality/Homicidality: Patient denies having any suicidal or homicidal ideation intent or plan. Perceptions: Patient denies any auditory or visual hallucinations. Though content/process: There is no evidence of any delusional thought content and thought process is linear and goal-directed. Memory and concentration: AOX3, grossly intact for the purposes of this session. Can spell "WORLD" backwards correctly. Judgment and insight: Improved with guarded prognosis Vital Signs Temp 97.2 F L 09/15/20 08:00 Pulse 88 09/15/20 08:00 Resp 16 09/15/20 08:00 BP 92/53 09/15/20 08:00 Pulse Ox 96 09/15/20 08:00 Impression: Bipolar disorder, depressive episode with psychosis Cannabis use disorder, moderate. Anxiety disorder, unspecified. Rule out PTSD Plan: -Continue with discharge today as patient has improved and stabilized psychiatrically and is not currently an imminent threat to herself and/or others. -Continue medications: Seroquel 100 mg by mouth every morning and 200 mg by mouth at bedtime for mood stabilization. Depakote 750 mg by mouth at bedtime for stabilization. Zoloft 50 mg by mouth daily for depression/anxiety Lidocaine patches for back pain. -Patient was counseled on the need for medication compliance and appropriate follow-up at mental health and also primary care for medical issues. Patient verbalized understanding and agreed. -Social work to arrange for and conduct family meeting to ensure safety upon discharge and answer any questions/concerns. Social work also to arrange for patients follow up appointments with [facility]] for psychiatric care along with follow up with primary care provider. -Patient counseled on abstaining from recreational drugs and marijuana and alcohol. Was informed/educated on the adverse effects on their physical and mental health. Patient verbally agreed and understood. -Patient was instructed to return to the hospital or seek immediate medical care if their psychiatric or medical symptoms do worsen or reoccur. -Psychoeducation and supportive therapy provided to patient. Risks and benefits of pharmacological treatment versus the risks and benefits of nontreatment weight and discussed. Informed consent discussion held. Common side effects of psychotropics discussed such as, but not limited to headache, GI disturbance, sexual dysfunction, movement disorders, sedation, and orthostatic hypotension. Life threatening and blackbox warnings of prescribed medications also discussed. Potential risks of operating a vehicle or heavy machinery discussed with patient at length. Advised on importance of compliance and a reliable and responsible manner. Patient advised to review FDA consumer labeling of all medications prior to taking. Patient verbalized understanding of potential risks, and agrees with current treatment plan. Patient advised to medically contact physician/emergency personnel if any acute changes in condition occur. Laboratory Results WBC 8.2 k/uL (3.8-10.6) 09/11/20 11:26 RBC 4.60 m/uL (3.80-5.40) 09/11/20 11:26 Hgb 13.3 gm/dL (11.4-16.0) 09/11/20 11:26 Hct 40.3 % (34.0-46.0) 09/11/20 11:26 MCV 87.7 fL (80.0-100.0) 09/11/20 11:26 MCH 28.9 pg (25.0-35.0) 09/11/20 11:26 MCHC 33.0 g/dL (31.0-37.0) 09/11/20 11:26 RDW 12.1 % (11.5-15.5) 09/11/20 11:26 Plt Count 397 k/uL (150-450) 09/11/20 11:26 MPV 7.3 09/11/20 11:26 Neutrophils % 64 % 09/11/20 11:26 Lymphocytes % 29 % 09/11/20 11:26 Monocytes % 4 % 09/11/20 11:26 Eosinophils % 2 % 09/11/20 11:26 Basophils % 1 % 09/11/20 11:26 Neutrophils # 5.3 k/uL (1.3-7.7) 09/11/20 11:26 Lymphocytes # 2.4 k/uL (1.0-4.8) 09/11/20 11:26 Monocytes # 0.3 k/uL (0-1.0) 09/11/20 11:26 Eosinophils # 0.2 k/uL (0-0.7) 09/11/20 11:26 Basophils # 0.0 k/uL (0-0.2) 09/11/20 11:26 Sodium 138 mmol/L (137-145) 09/11/20 11:26 Potassium 4.6 mmol/L (3.5-5.1) 09/11/20 11:26 Chloride 103 mmol/L (98-107) 09/11/20 11:26 Carbon Dioxide 26 mmol/L (22-30) 09/11/20 11:26 Anion Gap 9 mmol/L 09/11/20 11:26 BUN 8 mg/dL (7-17) 09/11/20 11:26 Creatinine 0.66 mg/dL (0.52-1.04) 09/11/20 11:26 Est GFR (CKD-EPI)AfAm >90 (>60 ml/min/1.73 sqM) 09/11/20 11:26 Est GFR (CKD-EPI)NonAf >90 (>60 ml/min/1.73 sqM) 09/11/20 11:26 Glucose 95 mg/dL (74-99) 09/11/20 11:[address] Glu mg/dL 100 09/11/20 11:26 Hemoglobin A1c 5.1 % (4.0-6.0) 09/11/20 11:26 Calcium 10.2 mg/dL (8.4-10.2) 09/11/20 11:26 Total Bilirubin 0.4 mg/dL (0.2-1.3) 09/11/20 11:26 AST 19 U/L (14-36) 09/11/20 11:26 ALT 14 U/L (4-34) 09/11/20 11:26 Alkaline Phosphatase 60 U/L (38-126) 09/11/20 11:26 Total Protein 7.5 g/dL (6.3-8.2) 09/11/20 11:26 Albumin 4.4 g/dL (3.5-5.0) 09/11/20 11:26 Triglycerides 125.0 mg/dL (0.0-149.0) 09/11/20 11:26 Cholesterol 171 mg/dL (0-200) 09/11/20 11:26 LDL Cholesterol, Calc 106.0 mg/dL (0.0-131.0) 09/11/20 11:26 VLDL Cholesterol, Calc 25.00 mg/dL (5.00-40.00) 09/11/20 11:26 HDL Cholesterol 40.0 mg/dL (40.0-60.0) 09/11/20 11:26 Cholesterol/HDL Ratio 4.28 09/11/20 11:26 TSH 0.369 mIU/L (0.465-4.680) L 09/11/20 11:26 Urine Opiates Screen Not Detected (NotDetected) 09/10/20 09:00 Ur Oxycodone Screen Not Detected (NotDetected) 09/10/20 09:00 Urine Methadone Screen Not Detected (NotDetected) 09/10/20 09:00 Ur Propoxyphene Screen Not Detected (NotDetected) 09/10/20 09:00 Ur Barbiturates Screen Not Detected (NotDetected) 09/10/20 09:00 Valproic Acid <10.0 ug/mL 09/10/20 16:27 U Tricyclic Antidepress Not Detected (NotDetected) 09/10/20 09:00 Ur Phencyclidine Scrn Not Detected (NotDetected) 09/10/20 09:00 Ur Amphetamines Screen Detected (NotDetected) H 09/10/20 09:00 U Methamphetamines Scrn Detected (NotDetected) H 09/10/20 09:00 U Benzodiazepines Scrn Not Detected (NotDetected) 09/10/20 09:00 Urine Cocaine Screen Not Detected (NotDetected) 09/10/20 09:00 U Marijuana (THC) Screen Detected (NotDetected) H 09/10/20 09:00 Coronavirus (PCR) Not Detected (Not Detectd) 09/10/20 12:15 Allergies Allergy/AdvReac Type Severity Reaction Status Date / Time Iodine and Iodide Containing Allergy Unknown Verified 09/10/20 09:40 Produc Patient Condition at Discharge: Stable Plan - Discharge Summary Discharge Rx Participant: No New Discharge Prescriptions: New Divalproex ER [Depakote ER] 750 mg PO HS 30 Days tab.er.24h guaiFENesin [Mucinex] 600 mg PO Q12HR PRN 7 Days tablet.er PRN Reason: Allergy Symptoms QUEtiapine [SEROquel] 100 mg PO DAILY 30 Days tab Lidocaine 5% Patch [Lidoderm 5% Patch] 1 patch TOPICAL DAILY 30 Days patch QUEtiapine [SEROquel] 200 mg PO HS 30 Days tab Sertraline [Zoloft] 50 mg PO DAILY 30 Days tab Discontinued Divalproex ER [Depakote ER] 750 mg PO HS #45 tab.er.24h QUEtiapine [SEROquel] 50 mg PO BID #60 tab Sertraline [Zoloft] 50 mg PO DAILY ALPRAZolam [Xanax] 1 mg PO ONCE Propranolol HCl [Propranolol HCl ER] 120 mg PO DAILY Discharge Medication List Divalproex ER [Depakote ER] 750 mg PO HS 30 Days tab.er.24h 09/15/20 [Rx] Lidocaine 5% Patch [Lidoderm 5% Patch] 1 patch TOPICAL DAILY 30 Days patch 09/15/20 [Rx] QUEtiapine [SEROquel] 100 mg PO DAILY 30 Days tab 09/15/20 [Rx] QUEtiapine [SEROquel] 200 mg PO HS 30 Days tab 09/15/20 [Rx] Sertraline [Zoloft] 50 mg PO DAILY 30 Days tab 09/15/20 [Rx] guaiFENesin [Mucinex] 600 mg PO Q12HR PRN 7 Days tablet.er 09/15/20 [Rx] Follow up Appointment(s)/Referral(s): [facility] [Outside] - 09/17/20 12:30 pm (Intake at [facility] with Bridgette) [facility] - [facility] Week Patient Instructions/Handouts: Bipolar Disorder (DC), Depression (DC) Activity/Diet/Wound Care/Special Instructions: Activity and diet as tolerated. Avoid the use of street drugs and alcohol. Take all medications as prescribed. When you are in need of refills on your medications please contact your medical provider and/or outpatient psychiatrist to have this done. Please go to scheduled outpatient appointment for aftercare treatment. If symptoms return or become worse, call the crisis line at and/or go to the nearest emergency room for evaluation. Discharge Disposition: HOME SELF-CARE
== END 2020-09-15 12:20 | disposition home or self-care (01) | DRG 885 ==
LOC: EC 09:07 → 3MHU 14:00
PROVIDERS: ADMIT Psychiatry & Neurology Psychiatry; ATTEND Psychiatry & Neurology Psychiatry
DX: F31.5 Bipolar disorder, current episode depressed, severe, with psychotic features (principal); R45.851 Suicidal ideations; F15.20 Other stimulant dependence, uncomplicated; F12.20 Cannabis dependence, uncomplicated; Z20.822 Contact with and (suspected) exposure to COVID-19; F41.0 Panic disorder [episodic paroxysmal anxiety]; I95.9 Hypotension, unspecified; F43.10 Post-traumatic stress disorder, unspecified; Z56.0 Unemployment, unspecified; Z62.810 Personal history of physical and sexual abuse in childhood; Z87.891 Personal history of nicotine dependence; Z79.899 Other long term (current) drug therapy; Z90.710 Acquired absence of both cervix and uterus; Z91.5 Personal history of self-harm; Z91.041 Radiographic dye allergy status; Z98.51 Tubal ligation status; Z71.51 Drug abuse counseling and surveillance of drug abuser
CPT/HCPCS: 80053; 80061; 80164; 80306; 82075; 83036; 84443; 85025; 87635; 99285

== ENCOUNTER 2020-11-28 03:48 | Emergency (ER) | payer OTHER ==
[2020-11-28] MEDS ORDERED: LIDOCAINE 1% INJ 10MG/ML (20 ML MDV) SQ STA (04:02)
[2020-11-28] MEDS ORDERED: LIDOCAINE VISCOUS 2% 15 ML CUP MUCOUS MEM ONE (04:07)
[2020-11-28] MEDS ORDERED: LIDOCAINE/EPINEPHR/TETRACAINE 5 ML BOTTLE TOPICAL ONE (04:07)
--- NOTE | 2020-11-28 04:09 | ED ---
Wound/Laceration HPI - General Chief Complaint: Wound/Laceration Stated Complaint: Mouth Injury Time Seen by Provider: 11/28/20 03:53 Source: patient, RN notes reviewed, old records reviewed Mode of arrival: ambulatory Limitations: no limitations - History of Present Illness Initial Comments: This is a 35-year-old female to the emergency department today. Patient presents today for evaluation in regards to significant lip laceration. -: minutes(s) Location: face (Upper lip laceration) Place: home Patient Tetanus UTD: Yes Context: accidental Associated Symptoms: none Treatments Prior to Arrival: other (none) - Related Data Previous Rx's Medication Instructions Recorded Divalproex ER [Depakote ER] 750 mg PO HS 30 Days tab.er.24h 09/15/20 Lidocaine 5% Patch [Lidoderm 5% 1 patch TOPICAL DAILY 30 Days 09/15/20 Patch] patch QUEtiapine [SEROquel] 100 mg PO DAILY 30 Days tab 09/15/20 QUEtiapine [SEROquel] 200 mg PO HS 30 Days tab 09/15/20 Sertraline [Zoloft] 50 mg PO DAILY 30 Days tab 09/15/20 guaiFENesin [Mucinex] 600 mg PO Q12HR PRN 7 Days 09/15/20 tablet.er Allergies Allergy/AdvReac Type Severity Reaction Status Date / Time Iodine and Iodide Containing Allergy Unknown Verified 11/28/20 03:56 Produc latex Allergy Rash/Hives Verified 11/28/20 03:56 Review of Systems ROS Statement: Those systems with pertinent positive or pertinent negative responses have been documented in the HPI. ROS Other: All systems not noted in ROS Statement are negative. Past Medical History Past Medical History: No Reported History Additional Past Medical History / Comment(s): depression, anxiety History of Any Multi-Drug Resistant Organisms: None Reported Past Surgical History: Bladder Surgery, Hysterectomy, Tubal Ligation Past Anesthesia/Blood Transfusion Reactions: No Reported Reaction Past Psychological History: Anxiety, Depression, Schizophrenia Smoking Status: Former smoker Past Alcohol Use History: Occasional Past Drug Use History: Marijuana General Exam Limitations: no limitations General appearance: alert, in no apparent distress Head exam: Present: atraumatic, normocephalic, normal inspection Eye exam: Present: normal appearance, PERRL, EOMI. Absent: scleral icterus, conjunctival injection, periorbital swelling ENT exam: Present: normal exam, mucous membranes moist. Absent: other (Significant laceration both of the vermilion border and throughout her upper lip for mucous membrane with gap, 4 cm) Neck exam: Present: normal inspection. Absent: tenderness, meningismus, lymphadenopathy Respiratory exam: Present: normal lung sounds bilaterally. Absent: respiratory distress, wheezes, rales, rhonchi, stridor Cardiovascular Exam: Present: regular rate, normal rhythm, normal heart sounds. Absent: systolic murmur, diastolic murmur, rubs, gallop, clicks GI/Abdominal exam: Present: soft, normal bowel sounds. Absent: distended, tenderness, guarding, rebound, rigid Extremities exam: Present: normal inspection, full ROM, normal capillary refill. Absent: tenderness, pedal edema, joint swelling, calf tenderness Back exam: Present: normal inspection Neurological exam: Present: alert, oriented X3, CN II-XII intact Psychiatric exam: Present: normal affect, normal mood Skin exam: Present: warm, dry, intact, normal color. Absent: rash Course Vital Signs 11/28/20 11/28/20 03:52 05:11 Temperature 97.9 F 98 F Pulse Rate 114 H 81 Respiratory 18 20 Rate Blood Pressure 126/82 129/79 O2 Sat by Pulse 97 98 Oximetry - Reevaluation(s) Reevaluation #1: 11/28/20 04:09 Medical records reviewed Reevaluation #2: 11/28/20 05:16 Patient lacerations repaired, hemostasis is achieved Procedures - Laceration Laceration #1 Consent Obtained: verbal consent Indication: laceration Site: lip, oral Size (cm): 5 Description: linear Anesthetic Used: lidocaine 1% Anesthesia Technique: nerve block Pre-repair: wound explored, irrigated extensively Type of Sutures: nylon, vicryl Size of Sutures: 5-0 Technique: simple, interrupted Patient Tolerated Procedure: well - Nerve Block Consent Obtained: verbal consent Local Anesthetic Used: Lidocaine 1% Side: left, right Intraoral Nerve Block: infraorbital Procedure Successful: Yes Complications: none Patient Tolerated Procedure: well Medical Decision Making - Medical Decision Making 35 female with significant lip laceration and roommate right. Patient has laceration to lip which is repaired here in the ER patient can be discharged home Disposition Clinical Impression: Laceration, Lip laceration, Ulceration, oral mucosa Disposition: HOME SELF-CARE Condition: Good Instructions (If sedation given, give patient instructions): Laceration (ED) Is patient prescribed a controlled substance at d/c from ED?: No Referrals: None,Stated [Primary Care Provider] - 1-2 days
[2020-11-28 05:12] VITALS: BP 129/79; PULSE 81; RESP 20; TEMP 98
[2020-11-28] MEDS ORDERED: HYDROmorphone 1 MG/ML 1 ML SYRINGE IM STA (05:19)
[2020-11-28] MEDS ORDERED: AMOXIC-POT CLAV 875MG STARTER PACK 2 TAB BTL PO STA (05:19)
[2020-11-28] MEDS ORDERED: AMOXIC-POT CLAV 875-125MG 1 EACH TAB PO STA (05:19)
[2020-11-28] MEDS ORDERED: AZITHROMYCIN 500 MG TAB PO STA (05:19)
[2020-11-28] MEDS ORDERED: cefTRIAXone 1,000 MG VIAL (IM USE) IM STA (05:19)
[2020-11-28] MEDS ORDERED: ONDANSETRON ODT 4 MG TAB PO STA (05:34)
== END 2020-11-28 05:40 | disposition home or self-care (01) ==
LOC: EC 03:48
DX: S01.511A Laceration without foreign body of lip, initial encounter (principal); K12.1 Other forms of stomatitis; F32.9 Major depressive disorder, single episode, unspecified; F41.9 Anxiety disorder, unspecified; F20.9 Schizophrenia, unspecified; F12.90 Cannabis use, unspecified, uncomplicated; Z79.899 Other long term (current) drug therapy; Z87.891 Personal history of nicotine dependence; W22.8XXA Striking against or struck by other objects, initial encounter
CPT/HCPCS: 12013; 96372 ×2; 99282; J2001; J0696; J1170

== ENCOUNTER 2021-01-18 10:46 | Emergency (ER) | payer OTHER ==
[2021-01-18 10:50] VITALS: RESP 18; TEMP 97.8
[2021-01-18] MEDS ORDERED: KETOROLAC 15 MG/ML 1 ML VIAL IVP STA (10:59)
[2021-01-18] MEDS ORDERED: SODIUM CHLORIDE 0.9% 1,000 ML IV STA (10:59)
--- NOTE | 2021-01-18 11:19 | ED ---
General Adult HPI - General Chief complaint: Chest Pain Stated complaint: chest pain Time Seen by Provider: 01/18/21 10:52 Source: patient, RN notes reviewed Mode of arrival: ambulatory Limitations: no limitations - History of Present Illness Initial comments: Patient is a 35-year-old female presented to the emergency room today with a chief complaint of chest pain to the left side. Patient does admit that it started 3 days ago. Does come and go. Patient denies anything specifically makes it better or worse. Patient states that she does have history anxiety and this feels somewhat similar. She states been on a lot of stress lately. She denies any other complaints or any other symptoms at this time. Patient denies any recent fever, chills, shortness of breath, back pain, abdominal pain, nausea or vomiting,headaches or visual changes, or any other complaints. - Related Data Previous Rx's Medication Instructions Recorded Divalproex ER [Depakote ER] 750 mg PO HS 30 Days tab.er.24h 09/15/20 Lidocaine 5% Patch [Lidoderm 5% 1 patch TOPICAL DAILY 30 Days 09/15/20 Patch] patch QUEtiapine [SEROquel] 100 mg PO DAILY 30 Days tab 09/15/20 QUEtiapine [SEROquel] 200 mg PO HS 30 Days tab 09/15/20 Sertraline [Zoloft] 50 mg PO DAILY 30 Days tab 09/15/20 guaiFENesin [Mucinex] 600 mg PO Q12HR PRN 7 Days 09/15/20 tablet.er Ibuprofen [Motrin] 600 mg PO Q6HR PRN #30 day 01/18/21 LORazepam [Ativan] 1 mg PO BID 3 Days #6 tab 01/18/21 Allergies Allergy/AdvReac Type Severity Reaction Status Date / Time Iodine and Iodide Containing Allergy Unknown Verified 11/28/20 03:56 Produc latex Allergy Rash/Hives Verified 11/28/20 03:56 Review of Systems ROS Statement: Those systems with pertinent positive or pertinent negative responses have been documented in the HPI. ROS Other: All systems not noted in ROS Statement are negative. Past Medical History Past Medical History: No Reported History Additional Past Medical History / Comment(s): depression, anxiety History of Any Multi-Drug Resistant Organisms: None Reported Past Surgical History: Bladder Surgery, Hysterectomy, Tubal Ligation Past Anesthesia/Blood Transfusion Reactions: No Reported Reaction Past Psychological History: Anxiety, Bipolar, Depression, Schizophrenia Smoking Status: Former smoker Past Alcohol Use History: Occasional Past Drug Use History: Marijuana General Exam - General Exam Comments Initial Comments: General: The patient is awake and alert, in no distress, and does not appear acutely ill. Eye: There is normal conjunctiva bilaterally. No signs of icterus. Ears, nose, mouth and throat: There are moist mucous membranes and no oral lesions. Neck: The neck is supple, there is no tenderness or JVD. Cardiovascular: Tachycardic. No murmur, rub or gallop is appreciated. Respiratory: Lungs are clear to auscultation, respirations are non-labored, breath sounds are equal. No wheezes, stridor, rales, or rhonchi. Musculoskeletal: Normal ROM, no tenderness. Neurological: A&O x 3. CN II-XII intact, There are no obvious motor or sensory deficits. Coordination appears grossly intact. Speech is normal. Skin: Skin is warm and dry and no rashes or lesions are noted. Psychiatric: Cooperative, appropriate mood & affect, normal judgment. Limitations: no limitations Course Vital Signs 01/18/21 10:46 Temperature 97.8 F Pulse Rate 124 H Respiratory 18 Rate Blood Pressure 132/86 O2 Sat by Pulse 98 Oximetry EKG Findings - EKG Comments: EKG Findings:: EKG performed: 1059. Shows normal sinus rhythm at 114 bpm. NE interval 124. QRS 88. QT/QTc 320/441. No acute ST changes. Medical Decision Making - Medical Decision Making Patient reexamined at this time shows no signs of distress. She is resting comfortably. She does admit that she's had similar symptoms in the past with her anxiety. Does admit that she's under a lot of stress. Patient's EKG was unremarkable. Chest x-ray negative. Patient's labs been reviewed. Negative troponin. Was discussed with patient about anxiety. Patient will be given short prescription of Ativan. Advised follow-up family doctor next 2 days. Advised return if any symptoms increase worsen or for any other concerns. She states understanding and is in agreement. - Lab Data Result diagrams: 01/18/21 11:17 01/18/21 11:17 Lab Results 01/18/21 01/18/21 01/18/21 Range/Units 11:17 11:17 11:17 WBC 3.8 (3.8-10.6) k/uL RBC 4.20 (3.80-5.40) m/uL Hgb 12.5 (11.4-16.0) gm/dL Hct 36.6 (34.0-46.0) % MCV 87.1 (80.0-100.0) fL MCH 29.8 (25.0-35.0) pg MCHC 34.2 (31.0-37.0) g/dL RDW 11.8 (11.5-15.5) % Plt Count 257 (150-450) k/uL MPV 7.3 Neutrophils % 43 % Lymphocytes % 42 % Monocytes % 8 % Eosinophils % 4 % Basophils % 1 % Neutrophils # 1.6 (1.3-7.7) k/uL Lymphocytes # 1.6 (1.0-4.8) k/uL Monocytes # 0.3 (0-1.0) k/uL Eosinophils # 0.2 (0-0.7) k/uL Basophils # 0.0 (0-0.2) k/uL Sodium 140 (137-145) mmol/L Potassium 3.5 (3.5-5.1) mmol/L Chloride 104 (98-107) mmol/L Carbon Dioxide 26 (22-30) mmol/L Anion Gap 10 mmol/L BUN 9 (7-17) mg/dL Creatinine 0.61 (0.52-1.04) mg/dL Est GFR (CKD-EPI)AfAm >90 (>60 ml/min/1.73 sqM) Est GFR (CKD-EPI)NonAf >90 (>60 ml/min/1.73 sqM) Glucose 98 (74-99) mg/dL Calcium 9.6 (8.4-10.2) mg/dL Troponin I (0.000-0.034) ng/mL Urine Color Light Yellow Urine Appearance Clear (Clear) Urine pH 7.0 (5.0-8.0) Ur Specific [place] 1.004 (1.001-1.035) Urine Protein Negative (Negative) Urine Glucose (UA) Negative (Negative) Urine Ketones Negative (Negative) Urine Blood Negative (Negative) Urine Nitrite Negative (Negative) Urine Bilirubin Negative (Negative) Urine Urobilinogen <2.0 (<2.0) mg/dL Ur Leukocyte Esterase Negative (Negative) Urine HCG, Qual (Not Detectd) 01/18/21 01/18/21 Range/Units 11:17 11:30 WBC (3.8-10.6) k/uL RBC (3.80-5.40) m/uL Hgb (11.4-16.0) gm/dL Hct (34.0-46.0) % MCV (80.0-100.0) fL MCH (25.0-35.0) pg MCHC (31.0-37.0) g/dL RDW (11.5-15.5) % Plt Count (150-450) k/uL MPV Neutrophils % % Lymphocytes % % Monocytes % % Eosinophils % % Basophils % % Neutrophils # (1.3-7.7) k/uL Lymphocytes # (1.0-4.8) k/uL Monocytes # (0-1.0) k/uL Eosinophils # (0-0.7) k/uL Basophils # (0-0.2) k/uL Sodium (137-145) mmol/L Potassium (3.5-5.1) mmol/L Chloride (98-107) mmol/L Carbon Dioxide (22-30) mmol/L Anion Gap mmol/L BUN (7-17) mg/dL Creatinine (0.52-1.04) mg/dL Est GFR (CKD-EPI)AfAm (>60 ml/min/1.73 sqM) Est GFR (CKD-EPI)NonAf (>60 ml/min/1.73 sqM) Glucose (74-99) mg/dL Calcium (8.4-10.2) mg/dL Troponin I <0.012 (0.000-0.034) ng/mL Urine Color Urine Appearance (Clear) Urine pH (5.0-8.0) Ur Specific [place] (1.001-1.035) Urine Protein (Negative) Urine Glucose (UA) (Negative) Urine Ketones (Negative) Urine Blood (Negative) Urine Nitrite (Negative) Urine Bilirubin (Negative) Urine Urobilinogen (<2.0) mg/dL Ur Leukocyte Esterase (Negative) Urine HCG, Qual Not Detected (Not Detectd) Disposition Clinical Impression: Anxiety Disposition: HOME SELF-CARE Condition: Good Instructions (If sedation given, give patient instructions): Anxiety (ED) Additional Instructions: Please use medication as discussed. Please follow-up with family doctor in the next 2 days of symptoms have not improved. Please return to emergency room if the symptoms increase or worsen or for any other concerns. Prescriptions: LORazepam [Ativan] 1 mg PO BID 3 Days #6 tab Ibuprofen [Motrin] 600 mg PO Q6HR PRN #30 day PRN Reason: Pain Is patient prescribed a controlled substance at d/c from ED?: Yes If prescribed controlled substance>3 days was MAPS reviewed?: Prescribed <3 Days Referrals: None,Stated [Primary Care Provider] - 1-2 days Time of Disposition: 12:27
[2021-01-18 11:27] LABS: Basophils % (A) 1 %; Eosinophils # (A) 0.2 k/uL (0-0.7); Eosinophils % (A) 4 %; HCT 36.6 % (34.0-46.0); HGB 12.5 gm/dL (11.4-16.0); Lymphocytes # (A) 1.6 k/uL (1.0-4.8); Lymphocytes % (A) 42 %; MCH 29.8 pg (25.0-35.0); MCHC 34.2 g/dL (31.0-37.0); MCV 87.1 fL (80.0-100.0); Mean Platelet Volume 7.3; Monocytes # (A) 0.3 k/uL (0-1.0); Monocytes % (A) 8 %; Neutrophils # (A) 1.6 k/uL (1.3-7.7); Neutrophils % (A) 43 %; Platelet Count 257 k/uL (150-450); RDW 11.8 % (11.5-15.5); WBC 3.8 k/uL (3.8-10.6)
[2021-01-18 11:56] LABS: African American GFR (CKD) >90 (>60 ml/min/1.73 sqM); Anion Gap 10 mmol/L; Blood Urea Nitrogen 9 mg/dL (7-17); Calcium 9.6 mg/dL (8.4-10.2); Carbon Dioxide 26 mmol/L (22-30); Chloride 104 mmol/L (98-107); Glucose 98 mg/dL (74-99); Non-African American GFR(CKD) >90 (>60 ml/min/1.73 sqM); Potassium 3.5 mmol/L (3.5-5.1); Sodium 140 mmol/L (137-145)
[2021-01-18 11:57] LABS: Appearance,Urine Clear (Clear); Bilirubin,Urine Negative (Negative); Blood,Urine Negative (Negative); Color,Urine Light Yellow; Glucose,Urine (UA) Negative (Negative); Ketones,Urine Negative (Negative); Leukocyte Esterase,Urine Negative (Negative); Nitrite,Urine Negative (Negative); Protein,Urine Negative (Negative); Specific Gravity,Urine 1.004 (1.001-1.035); Urobilinogen,Urine <2.0 mg/dL (<2.0)
--- NOTE | 2021-01-18 12:12 | XR ---
EXAMINATION TYPE: XR chest 2V DATE OF EXAM: 01/18/2021 COMPARISON: Chest x-ray 07/01/2020 HISTORY: Pain TECHNIQUE: Frontal and lateral views of the chest are obtained. FINDINGS: There is no focal air space opacity, pleural effusion, or pneumothorax seen. The cardiac silhouette size is within normal limits. The osseous structures are intact, there is a spinal curva ture. There are overlying artifacts. IMPRESSION: No acute cardiopulmonary process.
[2021-01-18] MEDS ORDERED: LORazepam 1 MG TAB PO STA (12:25)
[2021-01-18 12:42] VITALS: BP 117/80; PULSE 92
== END 2021-01-18 12:49 | disposition home or self-care (01) ==
LOC: EC 10:46
DX: F41.9 Anxiety disorder, unspecified (principal); F31.9 Bipolar disorder, unspecified; F20.9 Schizophrenia, unspecified; Z87.891 Personal history of nicotine dependence; F12.90 Cannabis use, unspecified, uncomplicated; Z72.89 Other problems related to lifestyle
CPT/HCPCS: 36415; 93005; 80048; 84484; 85025; 81003; 81025; 71046; 99285; 96374; J1885